=== PATIENT | male | born 1960 | race Caucasian/White ===

== ENCOUNTER 2020-11-26 12:11 | Inpatient (IN) | payer OTHER, SELFPAY ==
[2020-11-26] VITALS (58 sets, daily range): BP systolic 38–127; BP diastolic 18–81; PULSE 76–112; RESP 10–32; TEMP 36.3; O2SAT 63–100; BMI 20.6
--- NOTE | ~2020-11-26 | XR_ITS ---
EXAMINATION: XR chest 1V portable EXAM DATE: 11/29/2020 06:31 INDICATION: Acute respiratory failure, pneumonia. TECHNIQUE: Portable AP frontal chest x-ray was obtained. Comparison is made to prior examination from 11/28, 11/27. FINDINGS: Endotracheal tube tip is 1.2 centimeters above the tom. This could be safely retracted 1 cm. There is a right IJ venous line, tip projecting over the SVC. Nasogastric tube tip and side-port project over left upper quadrant, adequate. There is moderate to large amount of bilateral ill-defined acute airspace disease, probably edema or pneumonia. Please clinically correlate. There are no sizable pleural effusions. There is no pneumo thorax suspected. The cardiomediastinal silhouette is prominent but magnified on this AP technique. The bones and soft tissues are unremarkable. There is no significant interval change in airspace disease. IMPRESSION: 1. ET tube could be safely retracted 1 cm. 2. Moderate to large amount of bilateral edema and/or pneumonia. Reviewed, dictated and finalized at location A. HERMY EQUIPMENT REPAIRER
--- NOTE | ~2020-11-26 | XR_ITS ---
EXAMINATION: XR chest 1V portable EXAM DATE: 11/28/2020 06:27 INDICATION: Acute respiratory failure, pneumonia TECHNIQUE: Portable AP frontal chest x-ray was obtained. Comparison is made to prior examination from 11/27, 11/26. FINDINGS: Endotracheal tube tip is 2 centimeters above the tom. There is a right IJ venous line, tip projecting over the SVC. Nasogastric tube tip and side-port project over left upper quadrant, reginaldo quate. There is moderate to large amount of bilateral ill-defined acute airspace disease, probably edema or pneumonia. Please clinically correlate. There are no sizable pleural effusions. There is no pneumo thorax suspected. The cardiomediastinal silhouette is prominent but magnified on this AP technique. The bones and soft tissues are unremarkable. Mild interval progression in airspace disease correlating to last several days. IMPRESSION: 1. Tubes, line in position 2. Moderate to large amount of bilateral edema and/or pneumonia, mild interval progression. Reviewed, dictated and finalized at location A. K RANDER
--- NOTE | ~2020-11-26 | XR_ITS ---
EXAMINATION: XR chest ET placement EXAM DATE: 12/02/2020 09:10 INDICATION: Repositioned endotracheal tube. TECHNIQUE: Portable AP frontal chest x-ray was obtained. Comparison is made to prior examination from last several days. FINDINGS: Endotracheal tube tip is 2-3 centimeters above the tom. This is adequate. There is a ri ght IJ central venous line. There is a feeding tube tip and side-port projecting over left upper quad rant, expected positions. Moderate amount of ill-defined bilateral airspace disease, suspect with mild interval improvement com pared to last several days. Likely acute edema or pneumonia. Can't exclude underlying left suprahilar malignancy; follow-up should be obtained to resolution. There are small pleural effusions. There is no pneumothorax suspected. The cardiomediastinal silho uette is prominent but magnified on this AP technique. The bones and soft tissues are unremarkable. IMPRESSION: 1. Line and tube(s) in position. 2. Moderate amount of bilateral acute airspace disease, mild improvement. Reviewed, dictated and finalized at location B. CH AND PROSIZE MIXER
--- NOTE | ~2020-11-26 | XR_ITS ---
XR chest port-a-cath/central DATE: 11/26/2020 19:45 INDICATION: Central line placement TECHNIQUE: Portable upright AP view on 11/26/2020 at 1947 hours COMPARISON: 11/26/2020 AP chest at 1407 hours FINDINGS: Interval placement of right internal jugular central venous catheter, catheter tip overlyin g the lower aspect of the superior vena cava. No pneumothorax is detected. Bilateral pulmonary infiltrates are noted, stable since 1407 hours today. Aortic calcification. Diffuse osteopenia. IMPRESSION: Right internal jugular central venous catheter overlies caudal aspect of superior vena ca va; no pneumothorax Reviewed, dictated and finalized at Location A. Reviewed, dictated and finalized at location A. CTOR OF SCOUT WORK IMPRESSION: Right internal jugular central venous catheter overlies caudal aspe ct of superior vena cava; no pneumothorax
--- NOTE | ~2020-11-26 | XR_ITS ---
XR chest 1V portable DATE: 12/02/2020 05:39 INDICATION: Acute respiratory failure. Pneumonia. TECHNIQUE: Portable AP chest on December 02, 2020 at 0511 hours COMPARISON: 12/01/2020 portable AP chest at 0526 hours FINDINGS: ET tube tip 3 cm above tom in satisfactory position. NG tube in gastric fundus. Right internal jugular central venous catheter tip overlies the superior vena cava. Extensive diffuse bilateral pulmonary infiltrates persist relatively unchanged since 12/01/2020. Diffuse osteopenia. IMPRESSION: No significant change since 12/01/2020 Reviewed, dictated and finalized at location A. OL TEACHER
--- NOTE | ~2020-11-26 | CT_ITS ---
EXAMINATION: CT abdomen pelvis wo con DATE: 11/26/2020 15:41 INDICATION: Abnormal liver function tests. Abdominal pain. TECHNIQUE: Computed tomography (CT) of the abdomen and pelvis was performed without intravenous contr ast. Automated exposure control and iterative reconstruction technique were employed. The dose-length product was 472.98 mGy-cm. COMPARISON: CT abdomen and pelvis 08/23/2015, chest FINDINGS: The visualized portions of the lung bases demonstrate demonstrate emphysema. There are wide spread nodules and airspace and groundglass opacities. There are trace pleural effusions. The heart s ize is normal. No pericardial effusion. There is diffuse hepatic steatosis. There are gallstones in t he gallbladder, which is normal in size. There is gallbladder wall thickening, consistent with inters titial edema. The pancreas, adrenal glands, and kidneys are normal. There are no dilated loops of bow el. There are changes of ileocolic anastomosis. There is chronic wall thickening of 20 cm of terminal ileum. There is widespread edema of the intra-abdominal fat and body wall fat, which decreases sensi tivity. There are no pathologically enlarged lymph nodes. There is no free intraperitoneal fluid. The re are multiple chronic scattered small radiopaque foreign bodies in the peritoneum and retroperitone um. There is mild thoracolumbar spondylosis. There is chronic anterior wedging of T11 vertebral body. IMPRESSION: 1. Diffuse lung disease, consistent with pneumonia superimposed on emphysema. 2. Chronic wall thickening of 20 cm of terminal ileum, consistent with Crohn disease. 3. Diffuse hepatic steatosis. 4. Cholelithiasis. Reviewed, dictated and finalized at location A. CT MARKETING EXECUTIVE IMPRESSION: 1. Diffuse lung disease, consistent with pneumonia superimposed on emphysema. 2. Chronic wall thickening of 20 cm of terminal ileum, consistent with Crohn di sease. 3. Diffuse hepatic steatosis. 4. Cholelithiasis.
--- NOTE | ~2020-11-26 | XR_ITS ---
EXAMINATION: XR chest 1V portable DATE: 12/01/2020 06:16 INDICATION: Acute respiratory failure. Pneumonia. TECHNIQUE: frontal view of the chest was obtained. COMPARISON: Chest radiograph dated 11/30/2020 FINDINGS: Endotracheal tube tip 2.2 cm above the tom. Nasogastric tube tip in proximal side port in the body of the stomach. Right internal jugular central venous catheter with distal tip at the caudal superio r vena cava. Reticular and mild patchy airspace opacities throughout both lungs superimposed over a gradient of romero zy lower lung predominant opacities with blunting at the costophrenic angles. No pneumothorax. The ca rdiomediastinal silhouette is within normal limits for AP technique. Multiple old left-sided rib frac tures. IMPRESSION: 1. Persistent bilateral lung disease which could represent pulmonary edema and/or pneumonia. 2. Small bilateral pleural effusions. Reviewed, dictated and finalized at location A. M TABLE WORKER IMPRESSION: 1. Persistent bilateral lung disease which could represent pulmonary edema and/ or pneumonia. 2. Small bilateral pleural effusions.
--- NOTE | ~2020-11-26 | XR_ITS ---
EXAMINATION: XR chest 1V portable DATE: 11/30/2020 05:39 INDICATION: Acute respiratory failure. Pneumonia. TECHNIQUE: frontal view of the chest was obtained. COMPARISON: Chest radiograph dated 11/29/2020 FINDINGS: Endotracheal tube tip 4.5 cm above the tom. Nasogastric tube tip in proximal side port in the body of the stomach. Right internal jugular central venous catheter with distal tip at the midsuperior ve na cava. Persistent bilateral reticular and airspace opacities throughout the bilateral mid and lower lung zon es. Small bilateral pleural effusions. No pneumothorax. The cardiomediastinal silhouette is within no rmal limits for AP technique. Calcified mediastinal lymph nodes consistent with old granulomatous dis ease. Multiple old left-sided rib fractures. IMPRESSION: 1. Unchanged bilateral interstitial and airspace opacities which could represent pulmonary edema and/ or pneumonia. 2. Likely small bilateral pleural effusions. Reviewed, dictated and finalized at location A. HER PRESCHOOL IMPRESSION: 1. Unchanged bilateral interstitial and airspace opacities which could represen t pulmonary edema and/or pneumonia. 2. Likely small bilateral pleural effusions.
--- NOTE | ~2020-11-26 | US_ITS ---
EXAMINATION: US arterial ankle brachial ind DATE: 11/27/2020 12:18 INDICATION: Peripheral arterial disease. TECHNIQUE: Segmental pressures and plethysmographic and Doppler waveforms of the brachial and lower e xtremity arteries were obtained. COMPARISON: None. FINDINGS: Right and left brachial artery pressures of 78 mm Hg and 88 mm Hg, respectively, are concordant (norm al difference <= 30 mmHg). The right ankle-brachial index (LYNETTE) is 0.90 (normal >= 0.9-1.0). Arterial signal could not be detect ed in the great toe. Arterial Doppler waveforms are biphasic at the ankle. The left LYNETTE is 0.91. Arterial signal could not be detected in the great toe. Arterial Doppler wavefo tommie are biphasic. IMPRESSION: 1. Mildly decreased ABIs and lack of detectable arterial signal in the great toes, consistent with ar terial occlusive disease. Reviewed, dictated and finalized at location A. K PICKER IMPRESSION: 1. Mildly decreased ABIs and lack of detectable arterial signal in the great to es, consistent with arterial occlusive disease.
--- NOTE | ~2020-11-26 | XR_ITS ---
EXAMINATION: XR chest 1V DATE: 11/26/2020 14:11 INDICATION: Shortness of breath TECHNIQUE: frontal view of the chest was obtained. COMPARISON: Chest radiograph dated 02/24/[address] dated 02/25/2019 FINDINGS: Similar pattern of diffuse increased interstitial opacities throughout both lungs relatively sparing the apices. Diffuse bronchial wall thickening versus peribronchial cuffing. No pleural effusion or pn eumothorax. The cardiomediastinal silhouette is normal accounting for AP technique. Calcified right h ilar and mediastinal lymph nodes consistent with old granulomatous disease. A few old left-sided rib fractures. IMPRESSION: 1. Bronchial wall thickening and diffuse bilateral increased interstitial pattern. Differential would include pulmonary edema or pneumonia superimposed over emphysema which is better appreciated on prio r CT. Reviewed, dictated and finalized at location B. SPRING ASSEMBLER IMPRESSION: 1. Bronchial wall thickening and diffuse bilateral increased interstitial patte rn. Differential would include pulmonary edema or pneumonia superimposed over e mphysema which is better appreciated on prior CT.
--- NOTE | ~2020-11-26 | US_ITS ---
EXAMINATION: US venous doppler [facility] DATE: 11/27/2020 12:17 INDICATION: Lower limb pain. TECHNIQUE: Grayscale ultrasound images without and with compression and Doppler ultrasound images of the bilateral lower extremity veins were obtained. COMPARISON: None. FINDINGS: The visualized portions of right common femoral vein, profunda (deep) femoral vein, femoral vein, pop liteal vein, peroneal veins, posterior tibial veins, and greater saphenous vein outflow are patent. The visualized portions of left common femoral vein, profunda femoral vein, femoral vein, popliteal v ein, peroneal veins, posterior tibial veins, and greater saphenous vein outflow are patent. IMPRESSION: 1. No deep venous thrombosis. Reviewed, dictated and finalized at location A. TRANSFER OPERATOR
--- NOTE | ~2020-11-26 | CT_ITS ---
EXAMINATION: CT brain wo con DATE: 11/26/2020 14:05 INDICATION: Altered mental status TECHNIQUE: Computed tomography (CT) of the head was performed without intravenous contrast. Sagittal and coronal reconstructions were performed. The mA was adjusted according to patient size. Iterative reconstruction technique was employed. The dose-length product was 605.33 mGy-cm. COMPARISON: None FINDINGS: No acute intracranial hemorrhage, acute infarction or abnormal extra axial fluid collection. There is moderate scattered white matter hypoattenuation consistent with chronic small vessel ischemic diseas e. Ventricles are normal and symmetric. No mass/mass effect. The orbits, paranasal sinuses and mastoi d air cells are normal. IMPRESSION: 1. Moderate scattered white matter hypoattenuation consistent with chronic small vessel ischemic dise ase. No acute intracranial process. Reviewed, dictated and finalized at location B. MACHINE OPERATOR IMPRESSION: 1. Moderate scattered white matter hypoattenuation consistent with chronic smal l vessel ischemic disease. No acute intracranial process.
--- NOTE | ~2020-11-26 | US_ITS ---
EXAMINATION: US renal BI DATE: 11/27/2020 12:17 INDICATION: Acute kidney injury. TECHNIQUE: Multiple ultrasound grayscale images of the kidneys were obtained. COMPARISON: CT abdomen and pelvis 11/26/2020 FINDINGS: The right kidney measures 10.5 x 5.0 x 4.5 cm. The left kidney measures 10.3 x 5.4 x 5.6 cm. The kidn eys demonstrate normal parenchymal echogenicity. There is no hydronephrosis. The bladder is decompres sed by a Torres catheter. IMPRESSION: 1. Normal kidneys. No hydronephrosis. Reviewed, dictated and finalized at location A. CONTAINER SHIPPER
--- NOTE | ~2020-11-26 | XR_ITS ---
EXAMINATION: XR chest 1V portable EXAM DATE: 11/27/2020 05:55 INDICATION: Respiratory failure. TECHNIQUE: Portable AP frontal chest x-ray was obtained. Comparison is made to prior examination from 11/26/2020. FINDINGS: Endotracheal tube tip is 2 centimeters above the tom. There is a right IJ venous line, tip projecting over the SVC. Feeding tube tip is below the diaphragm. Site port is at the gastroesoph ageal junction level. This could be safely advanced 5 cm. There is moderate to large amount of bilateral ill-defined acute airspace disease, probably edema or pneumonia. Please clinically correlate. There are no sizable pleural effusions. There is no pneumo thorax suspected. The cardiomediastinal silhouette is prominent but magnified on this AP technique. The bones and soft tissues are unremarkable. There is no significant interval change compared to prior exam. IMPRESSION: 1. Nasogastric tube could be safely advanced 5 cm. 2. Moderate to large amount of bilateral edema and/or pneumonia. Reviewed, dictated and finalized at location A. PROJECT MANAGER
--- NOTE | ~2020-11-26 | XR_ITS ---
XR chest ET placement DATE: 11/26/2020 21:25 INDICATION: ET tube placement TECHNIQUE: Portable AP chest on 11/26/2020 at 2126 hours COMPARISON: 11/26/2020 portable AP chest at 1947 hours FINDINGS: Interval placement of endotracheal tube, the distal tip 3.3 cm above tom, in satisfactor y position. Right internal jugular central venous catheter tip overlying superior vena cava. Patchy bilateral pulmonary infiltrates are again noted, appearing increased in severity in particular in the left central and lower lung zones since 1947 hours. IMPRESSION: ET tube in satisfactory position Bilateral infiltrates, increased in particular on the left since earlier this evening Reviewed, dictated and finalized at Location A. Reviewed, dictated and finalized at location A. LE INSPECTOR IMPRESSION: ET tube in satisfactory position Bilateral infiltrates, increased in particular on the left since earlier this e dara
--- NOTE | ~2020-11-26 | CT_ITS ---
EXAMINATION: CT brain wo con EXAM DATE: 11/28/2020 06:20 INDICATION: Left eye deviation. TECHNIQUE: Spiral CT of the head was performed without contrast. Axial, coronal and sagittal images were reviewed. The dose-length product (DLP) for this examination was 756.67 mGy-cm. The exposure w as tailored according to patient size, and iterative reconstruction (ASIR) was used as additional dos e reduction technique. Comparison is made to prior examination from 11/26/2020. FINDINGS: Patient is intubated and there is an orogastric tube. There is suspected to be some interva l decrease in the density of subcortical and deep white matter, and possibly some loss of tucker-white differentiation in the occipital lobes. Sulci also appear less prominent than on prior study which co uld be from cerebral edema. Appearance suggests possibility of global anoxic injury. No herniation. There is no acute intraparenchymal hemorrhage. No evidence of intraparenchymal brain mass lesion. Th ere is moderate periventricular and subcortical hypodensity, nonspecific but probably partly microang iopathy and also developing edema. There is mild prominence of the sulci and ventricles related to cerebral atrophy. There is intracranial carotid arteriosclerosis. There are no extra-axial collect ions. There is no mass effect or midline shift. Disconjugate gaze. Soft tissue is unremarkable. T he visualized sinuses and mastoid air cells are well aerated. IMPRESSION: 1. Suspect developing symmetric changes of global anoxic injury. 2. Chronic age related findings. Reviewed, dictated and finalized at location A. OARD MOTOR TESTER
--- NOTE | ~2020-11-26 | XR_ITS ---
XR abdomen NG/feed tube insert DATE: 11/26/2020 22:37 INDICATION: NG tube placement TECHNIQUE: Portable AP view on 11/26/2020 at 2236 hours COMPARISON: None FINDINGS: A nasogastric tube is present in the gastric fundus, the proximal side-port approximately 5 cm distal to the diaphragmatic hiatus. IMPRESSION: NG tube in stomach Reviewed, dictated and finalized at Location A. Reviewed, dictated and finalized at location A. RLOCKER IMPRESSION: NG tube in stomach
--- NOTE | 2020-11-26 12:22 | ECG_ITS ---
Measurements Intervals [place] Rate: 77 P: 76 TX: 136 QRS: 258 QRSD: 114 T: 65 QT: 455 QTc: 515 Interpretive Statements SINUS RHYTHM ATRIAL PREMATURE COMPLEX RIGHT AXIS DEVIATION INCOMPLETE RIGHT BUNDLE BRANCH BLOCK POOR R WAVE PROGRESSION, ANTERIOR LEADS CONSIDER INFERIOR INFARCT, AGE INDETERMINATE ABNORMAL ECG Electronically Signed On 11-26-2020 12:49:04 STRUCTURAL STEEL EQUIPMENT ERECTOR by Camacho Palafox D.O.
[2020-11-26 12:27] LABS: Glucose Point of Care 67 (65-105)
[2020-11-26] MEDS: DEXTROSE 50% 25 GM/50 ML SYRINGE (12:28)
[2020-11-26] MEDS: DEXTROSE 5%/LACTATED RINGERS 1,000 ML 999 ML IV CONT (12:35)
--- NOTE | 2020-11-26 13:03 | ED.GENADULT ---
HPI - General Adult General Chief complaint: Recheck/Abnormal Lab/Rx Stated complaint: Altered Mental Status Time Seen by Provider: 11/26/20 12:25 Source: family Mode of arrival: EMS Limitations: altered mental status History of Present Illness HPI narrative: A 60-year-old male was brought into the emergency department with his brother and EMS for complaints of altered mental status. His brother noted that the patient started acting abnormally yesterday. They let him rest as it seemed that was what the patient wanted. They went into check on him today and now he was acting more altered and even now combative. Patient will respond if disturbed, he seems as though he just wants to sleep. Related Data Allergies Allergy/AdvReac Type Severity Reaction Status Date / Time Bumble Bee Allergy Severe Anaphylactic Uncoded 02/24/19 15:49 Shock HYDROMORPHONE HCL Allergy Unknown Uncoded 02/24/19 15:49 Review of Systems Review of Systems: ROS unobtainable: Yes unobtainable due to mental status Exam Narrative: Exam Narrative: GENERAL: Thin, frail, appears older than stated age. HEAD: Normocephalic, atraumatic. EYES: PERRLA and EOMI. ENT: Nares clear, no rhinorrhea or epistaxis. Mucous membranes moist. Oropharynx without tonsillar hypertrophy exudate or other lesions. Pt endentulous. NECK: Supple. No adenopathy or masses. No carotid bruits or JVD CHEST: Diminished, poor effort. No respiratory distress. No wheezes rales or rhonchi HEART: Regular rate and rhythm. No murmur heard. Normal peripheral pulses. ABDOMEN: Soft, nontender, nondistended, normal active bowel sounds. EXTREMITIES: Normal range of motion. No edema. SKIN: Warm, dry, no rash. NEURO: No focal deficits. Alert and oriented x3. PSYCH: Normal mood and affect. Course Reevaluation(s) Reevaluation #1: Patient is resting in the room, he is responding somewhat more but still somewhat altered. We will plan for admission. Time: 15:43 Consultations Consultation #1: Case discussed with ELEAZAR Jaquez for the hospitalist service. She has agreed to accept patient however recommends consulting with ICU. Awaiting CT of the abdomen and pelvis to further evaluate the patient's elevated LFTs. This is likely related to hypoperfusion from his shock. Time: 15:13 Consultation #2: Case discussed with envelope maker. Full details of the patient's presentation and evaluation were discussed. He agrees to accept patient for admission to the ICU. Time: 16:33 Vital Signs Vital signs: Vital Signs Temperature 36.3 C L 11/26/20 12:13 Pulse Rate 78 11/26/20 12:13 Respiratory Rate 31 H 11/26/20 12:13 Blood Pressure 87/37 L 11/26/20 12:13 Pulse Oximetry 85 L 11/26/20 12:13 Temperature 36.3 C L 11/26/20 12:13 Pulse Rate 76 11/26/20 15:50 Respiratory Rate 22 H 11/26/20 15:50 Blood Pressure 104/50 L 11/26/20 15:50 Pulse Oximetry 98 11/26/20 15:50 Medical Decision Making MDM Narrative Medical decision making narrative: In brief this 60-year-old male came into the emergency department for altered mental status. Initially he was found to be quite altered, he was maintaining his airway and his GCS was greater than 8. I did not feel he warranted intubation. Patient also presented hypotensive and would need to be adequately resuscitated before intubation. He was started on IV fluids and was responding well. His blood pressures were increasing. Patient's mental status has not improved however. He was found to be hyponatremic, hyperkalemic, with acute renal failure with a urinary tract infection and pneumonia. Patient qualified a septic shock once this was discovered. Blood cultures and antibiotics were ordered. Patient will be admitted to ICU. Medical Records Medical records reviewed: Yes I reviewed the patient's medical records. Vital Signs Vital Signs: Vital Signs Temperature 36.3 C L 11/26/20 12:13 Pulse Rate 78 11/26/20 12:13 Respiratory Rate 31 H 11/26/20 1
[2020-11-26 13:13] LABS: Glucose Point of Care 239 (65-105)
[2020-11-26] MEDS: LACTATED RINGERS 2,000 ML 999 ML IV CONT (13:20)
[2020-11-26 13:30] LABS: Basophils Percent Auto 0.2 % (0.2-1.2); Hematocrit 34.9 % (42.0-52.0); Hemoglobin 11.2 g/dL (14.0-18.0); Immature Granulocyte Absolute 0.21 K/mm3 (0.00-0.031); Lymphocytes Absolute Auto 1.25 K/mm3 (0.9-3.2); Lymphocytes Percent Auto 6.2 % (18.3-44.2); Mean Corpuscular HGB Conc 32.1 g/dl (32-36); Mean Corpuscular Hemoglobin 29.6 pg (26-34); Mean Corpuscular Volume 92.3 fl (80-100); Mean Platelet Volume 10.3 fl (7.4-10.4); Neutrophils Absolute Auto 17.8 K/mm3 (1.3-6.7); Neutrophils Percent Auto 87.6 % (45.5-73.1); Nucleated Red Blood Cells Absolute Auto 0.4 K/mm3 (0.0-0.012); Nucleated Red Blood Cells Perc 1.7 % (0.0-0.2); Platelet Count Result 411 k/mm3 (150-375); Red Blood Count 3.78 M/mm3 (4.6-6.20); Red Cell Distribution Width 20.8 % (11.5-14.5); White Blood Count 20.3 K/mm3 (4.5-10.0)
[2020-11-26 13:37] LABS: Base Excess ABG -9.5 mEq/l (+/-2.0); Fractional Inspired Oxygen 28 %; Oxygen Content ABG 12.4 %vol (16.0-22.0); PCO2 ABG 33.8 mmHg (35.0-45.0); PO2 ABG 56.8 mmHg (80.0-100.0); PO2 FiO2 Ratio Arterial Blood 2.03 %; pH ABG 7.294 (7.350-7.450)
[2020-11-26 13:41] LABS: Oxygen Saturation ABG 86.9 % (95.0-100.0)
[2020-11-26 13:42] LABS: Device NASAL CANNULA; Site Drawn RIGHT FEMORAL
[2020-11-26 13:42] LABS: Acetaminophen < 10 ug/mL (10-30); Ammonia 33 umol/L (9-30); Ethanol < 10 mg/dL (<10); Hypochromasia 1+ (NORMAL); Platelet Estimate Increased (Adequate); Salicylate 1.8 mg/dL (2-20)
[2020-11-26 13:43] LABS: Poikilocytosis 2+ (NORMAL); Target Cells 1+ (NORMAL)
--- NOTE | 2020-11-26 13:45 | PCRCNOTE ---
Dr Brooks brien femoral ABG'S
[2020-11-26 13:47] LABS: Alanine Aminotransferase 260 U/L (4-50); Albumin Level 2.7 g/dL (3.5-5.1); Alkaline Phosphatase 123 U/L (38-126); Anion Gap 14 mmol/L (8-16); Bilirubin,Total 2.6 mg/dL (0.2-1.3); Blood Urea Nitrogen 61 mg/dL (9-20); Calcium 5.9 mg/dL (8.4-10.2); Carbon Dioxide 19 mmol/L (22-30); Chloride 90 mmol/L (98-107); Glucose 216 mg/dL (75-110); Lactic Acid Reflex 5.9 mmol/L (0.7-2.1); Potassium 6.3 mmol/L (3.4-5.0); Sodium 123 mmol/L (137-145)
--- NOTE | 2020-11-26 13:47 | PCRCNOTE ---
Dr Feldman brien femoral ABG'S
[2020-11-26 13:52] LABS: Estimated CRCL calculation 26 ml/min; Estimated Glomerular Filt Rate 22
[2020-11-26 13:53] LABS: Aspartate Amino Transferase 1023 U/L (17-59)
[2020-11-26 14:00] LABS: Add Urine Microscopic? YES; Amorphous Sediment Urine Few; Appearance Urine Cloudy (Clear); Bacteria Urine 2+ /hpf; Bilirubin Urine Negative (Negative); Blood Urine 2+ (Negative); Color Urine Amber (Yellow); Glucose Urine UA Negative (Negative); Hyaline Casts Urine 20-29 /lpf; Ketones Urine Negative (Negative); Leukocyte Esterase Ur Negative LEU/UL (Negative); Mucus Urine Rare /lpf; Nitrate Urine Negative (Negative); Protein Urine 3+ mg/dL (Negative); Specific Grav Ur 1.016 (1.001-1.035); Squamous Epithelial Cell Urine Few /hpf (Few); Urobilinogen Urine Negative mg/dL (<2.0); WBC Urine 16-20 /hpf
[2020-11-26 14:02] LABS: Creatine Kinase 491 U/L (55-170)
[2020-11-26 14:09] LABS: Barbiturate Screen Urine Negative (Negative); Benzodiazepines Screen Urine Negative (Negative)
[2020-11-26 14:10] LABS: Cannabinoid Screen Urine Negative (Negative); Cocaine Screen Urine Negative (Negative); Methadone Screen Urine Negative (Negative); Opiate Screen Urine Negative (Negative); Phencyclidine Screen Urine Negative (Negative)
[2020-11-26 14:20] LABS: Troponin I 0.371 ng/mL (0.000-0.034)
[2020-11-26 14:52] LABS: Amphetamine Screen Urine Positive (Negative)
[2020-11-26 15:33] LABS: CRP 6.8 mg/dL (<1.0)
[2020-11-26 15:53] LABS: Glucose Point of Care 176 (65-105)
[2020-11-26 16:22] LABS: Reflex Lactic Acid Yes or No Add Lactic
[2020-11-26 17:25] LABS: Lactic Acid 3.1 mmol/L (0.7-2.1)
[2020-11-26 18:22] LABS: Anion Gap 12 mmol/L (8-16); Blood Urea Nitrogen 60 mg/dL (9-20); Calcium 5.7 mg/dL (8.4-10.2); Carbon Dioxide 21 mmol/L (22-30); Chloride 89 mmol/L (98-107); Glucose 274 mg/dL (75-110); Potassium 5.9 mmol/L (3.4-5.0); Sodium 122 mmol/L (137-145)
[2020-11-26 18:30] LABS: Estimated CRCL calculation 28 ml/min; Estimated Glomerular Filt Rate 24
[2020-11-26 18:53] LABS: Glucose Point of Care 170 (65-105)
--- NOTE | 2020-11-26 18:54 | PC.NURSE ---
EDP at bedside due to patient's decrease in mental status and blood pressure. Central Line placement consent obtained at this time.
[2020-11-26] MEDS: LACTATED RINGERS 1,000 ML 999 ML (18:55)
--- NOTE | 2020-11-26 19:00 | PC.NURSE ---
Levophed started per EDP verbal order at 4mcg/min due to patient's mental status change and low blood pressures.
--- NOTE | 2020-11-26 19:08 | PC.NURSE ---
YAZAN Gan Rn initiated. Levophed drip at 4 mcg/min. ERP at bedside.
--- NOTE | 2020-11-26 19:10 | PC.NURSE ---
Assumed care of Pt. Report from KELVIN Gan
--- NOTE | 2020-11-26 19:12 | PC.NURSE ---
Central line placed by ANNALISA Robles.
[2020-11-26] MEDS: NOREPINEPHRINE 8 MG/D5W 250 ML 8 MG/250 ML BAG 9.38 MG IV CONT (19:30)
--- NOTE | 2020-11-26 20:00 | PM.IMHP ---
H&P: HPI History of Present Illness Date/Time: 11/26/20 20:00. The patient was seen and evaluated in the emergency department. Chief Complaint: Altered mental status. Narrative: This is a 60-year-old male smoker with COPD, previously on oxygen, and Crohn's disease who presented to the emergency department earlier today via EMS from home for evaluation of altered mental status. Due to his confusion, the patient is not able to provide an accurate history and as such a majority of the following is obtained via a review of his electronic medical records as well as discussions with his brother, Issa, who is at bedside. The patient lives with his elderly mother who reports that over the past month or so he has only left his room to go to the bathroom and back. Within the last day or so the patient phoned Issa asking if he had a wheelchair at home for him to use, as he was having a lot of pain in his legs and feet with walking. For the last couple of days he has not been eating much, and this morning when his mom came to wake him up he was confused, irritable, and combative prompting the call to 911. At the time my evaluation he will open his eyes to name (he is very hard of hearing) but his answers are mumbled and incomprehensible. In the emergency department he was found to be in septic shock, presumably due to pneumonia, with evidence of multiorgan failure and is being admitted in this setting. Due to impending respiratory failure and increasing confusion, the patient was intubated. Review of Systems Review of Systems: Narrative: Unable to obtain given his current clinical condition as detailed above. [facility] Past Medical History Medical History (Updated 11/26/20 @ 22:35 by Marivel Pittman PA-C) Chronic back pain Chronic obstructive pulmonary disease Chronic respiratory failure Previously on home oxygen. Colon polyps Crohn's disease Gastroesophageal reflux disease Hard of hearing Osteoarthritis Pulmonary nodules Tobacco dependence Surgical History Surgical History (Updated 11/26/20 @ 22:26 by Marivel Pittman PA-C) History of partial colectomy History of tonsillectomy Family History Family History (Updated 11/26/20 @ 22:27 by Marivel Pittman PA-C) Father Heart disease Mother Diabetes mellitus Sibling Diabetes mellitus Sibling Congestive heart failure Social History Social History (Updated 01/26/21 @ 22:28 by Marivel Pittman PA-C) Social History: The patient lives in [place] with his mother. He never and has no children. On disability. Smokes about 1.5 packs of cigarettes per day and has for over 40 years. No known alcohol or drug use however his drug screen today is positive for amphetamines. His mother Janet Black is his surrogate decision maker and at this time he is a full code. His brother Issa is also in emergency contact ([phone]). Meds Home Medications and Allergies Allergies Allergy/AdvReac Type Severity Reaction Status Date / Time bee venom protein (honey bee) Allergy Severe Anaphylactic Verified 11/26/20 19:34 Shock hydromorphone Allergy Unknown Verified 11/26/20 19:34 Bumble Bee Allergy Severe Anaphylactic Uncoded 02/24/19 15:49 Shock Vital Signs Vital Signs - 24 hr 11/26/20 12:13 11/26/20 12:54 11/26/20 13:48 Temperature 97.3 F L Pulse Rate 78 86 78 Respiratory Rate 31 H 21 H 20 Blood Pressure 87/37 L 86/36 L 92/31 L Pulse Oximetry 85 L 92 95 11/26/20 15:14 11/26/20 15:50 11/26/20 17:07 Temperature Pulse Rate 81 76 81 Respiratory Rate 26 H 22 H 27 H Blood Pressure 100/46 L 104/50 L 109/48 L Pulse Oximetry 96 98 95 11/26/20 18:54 11/26/20 19:00 11/26/20 19:01 Temperature Pulse Rate 81 82 83 Respiratory Rate 17 32 H 25 H Blood Pressure 65/52 L 38/18 L Pulse Oximetry 89 L 11/26/20 19:08 11/26/20 19:15 11/26/20 19:30 Temperature Pulse Rate 83 85 86 Respiratory Rate 28 H 31 H Blood Pressure 75/52 L 64/24 L
[2020-11-26 20:19] LABS: Alveolar/Arterial O2 Gradient 157.5 mmHg; Base Excess ABG -15.1 mEq/l (+/-2.0); Fractional Inspired Oxygen 40 %; HCO3 ABG 13.4 mEq/l (22.0-26.0); Oxygen Content ABG 14.7 %vol (16.0-22.0); Oxygen Saturation ABG 91.7 % (95.0-100.0); Oxyhemoglobin 87.3 % THb (90.0-100.0); PCO2 ABG 41.6 mmHg (35.0-45.0); PO2 ABG 79.9 mmHg (80.0-100.0); Total Hemoglobin 11.9 g/dL (12.0-18.0)
[2020-11-26 20:21] LABS: Device NASAL CANNULA; Modified Allen's Test Pass; Site Drawn RIGHT RADIAL; pH ABG 7.126 (7.350-7.450)
[2020-11-26 20:24] LABS: Partial Thromboplastin Time 45.6 SECONDS (22.3-36.8); Prothrombin Time 46.5 Seconds (11.1-14.7)
[2020-11-26 20:31] LABS: Alanine Aminotransferase 392 U/L (4-50); Albumin Level 2.7 g/dL (3.5-5.1); Alkaline Phosphatase 127 U/L (38-126); Anion Gap 17 mmol/L (8-16); Blood Urea Nitrogen 58 mg/dL (9-20); Calcium 5.8 mg/dL (8.4-10.2); Carbon Dioxide 16 mmol/L (22-30); Chloride 91 mmol/L (98-107); Glucose 136 mg/dL (75-110); Magnesium 1.7 mg/dL (1.6-2.3); Potassium 6.2 mmol/L (3.4-5.0); Sodium 124 mmol/L (137-145)
[2020-11-26 20:32] LABS: Lactic Acid Reflex 8.1 mmol/L (0.7-2.1)
--- NOTE | 2020-11-26 20:45 | PC.NURSE ---
VORB Marivel BUSH 2048 15 mg etomidate administered IVP 2049 25 mg Rocuronium administered IVP PT. intubated by ELEAZAR Orta. ET tube size 7.5 and measures 24 at the lip. Positive color change noted. Bilateral breath sounds heard by ELEAZAR Orta
[2020-11-26 20:50] LABS: Estimated CRCL calculation 24 ml/min; Estimated Glomerular Filt Rate 21
--- NOTE | 2020-11-26 20:50 | WPDPROCEDUR ---
Procedures Intubation Intubation Date: 11/26/20 Intubation Time: 20:50 Consent: Obtained from patients A pre-procedural Time-Out was completed immediately before starting the procedure and confirmed: Patient Identification, Site, Procedure, Patient Position and the Availability of Requisite Equipment: Yes Sedative: etomidate Mg given: 15 Paralytic: rocuronium Mg given: 25 Laryngoscope: John (3) ET tube size: cuffed Tube secured depth (cm): 24 Tube secured location: lips Tube placement confirmation: visualized tube passing through cords, equal breath sounds bilaterally, no breath sounds over epigastrium and confirmation by capnometry Patient tolerated procedure: well Intubation complications: none
[2020-11-26 20:55] LABS: Aspartate Amino Transferase 1597 U/L (17-59)
--- NOTE | 2020-11-26 21:00 | PC.NURSE ---
2 RN's attempted to insert NG and OG multiple times. No success.
[2020-11-26 21:02] LABS: Creatine Kinase 1228 U/L (55-170)
[2020-11-26 21:03] LABS: Hemoglobin A1C 4.9 % (<5.7)
[2020-11-26 21:05] LABS: Fibrinogen 156 mg/dl (215-510)
[2020-11-26] MEDS: SODIUM CHLORIDE 0.9% IV 1,000 ML 999 ML IV CONT ×2 (21:20→23:45)
[2020-11-26 21:23] LABS: Glucose Point of Care 118 (65-105)
[2020-11-26] MEDS: DEXTROSE 50% 25 GM/50 ML SYRINGE IV PUSH (21:27)
[2020-11-26] MEDS: INSULIN HUMAN REGULAR (*BKC) 100 UNITS/ML 10 UNITS IV PUSH (21:28)
--- NOTE | 2020-11-26 21:30 | PC.NURSE ---
2 amps of Sodium Bicarb administered IVP YAZAN Perez, PA
[2020-11-26] MEDS: CALCIUM GLUC 1,000 MG/NS 50 ML 1,000 MG/50 ML BAG 100 MG IVPB (21:32)
[2020-11-26] MEDS: MIDAZOLAM HCL (*CRX) 2 MG/2 ML VIAL IV PUSH (21:35)
[2020-11-26 22:12] LABS: Hematocrit 35.3 % (42.0-52.0); Hemoglobin 11.1 g/dL (14.0-18.0); Mean Corpuscular HGB Conc 31.4 g/dl (32-36); Mean Corpuscular Hemoglobin 29.8 pg (26-34); Mean Corpuscular Volume 94.9 fl (80-100); Mean Platelet Volume 9.8 fl (7.4-10.4); Platelet Count Result 413 k/mm3 (150-375); Red Blood Count 3.72 M/mm3 (4.6-6.20); Red Cell Distribution Width 20.8 % (11.5-14.5); White Blood Count 24.7 K/mm3 (4.5-10.0)
[2020-11-26] MEDS: LACTATED RINGERS 1,000 ML 125 ML IV CONT (22:27)
[2020-11-26] MEDS: FENTANYL 2,500MCG/NS250ML(*CRX 2,500 MCG/250 ML BAG 10 MCG IV CONT (22:35)
[2020-11-26 23:04] LABS: Alveolar/Arterial O2 Gradient 291.1 mmHg; Base Excess ABG -11.4 mEq/l (+/-2.0); Fractional Inspired Oxygen 65 %; HCO3 ABG 18.7 mEq/l (22.0-26.0); Methemoglobin ABG 0.2 %THb (0-1.5); Oxygen Content ABG 16.2 %vol (16.0-22.0); Oxygen Saturation ABG 95.5 % (95.0-100.0); Oxyhemoglobin 92.8 % THb (90.0-100.0); PO2 ABG 104.8 mmHg (80.0-100.0); PO2 FiO2 Ratio Arterial Blood 1.61 %; Total Hemoglobin 12.3 g/dL (12.0-18.0)
[2020-11-26 23:07] LABS: Device VENTILATOR; Modified Allen's Test Pass; PCO2 ABG 62.1 mmHg (35.0-45.0); Site Drawn LEFT RADIAL; pH ABG 7.097 (7.350-7.450)
[2020-11-26 23:08] LABS: Arterial Blood Gas PEEP 5 cmH2O; Arterial Blood Gas Tidal Volume 380 ml; Arterial Blood Gas Vent Mode CMV; Arterial Blood Gas Ventilator rate 16 /MIN
[2020-11-26 23:35] LABS: Mean Platelet Volume 9.7 fl (7.4-10.4); Platelet Count Result 422 k/mm3 (150-375)
[2020-11-26 23:38] LABS: INR 4.7; Prothrombin Time 44.7 Seconds (11.1-14.7)
[2020-11-26 23:39] LABS: Partial Thromboplastin Time 45.3 SECONDS (22.3-36.8)
[2020-11-26 23:42] LABS: Lactic Acid Reflex 3.5 mmol/L (0.7-2.1)
[2020-11-26] MEDS: SODIUM BICARBONATE 8.4% 100 MEQ in DEXTROSE 5% 1,000 ML 1,000 ML IV CONT (23:43)
[2020-11-26 23:44] LABS: Fibrinogen 243 mg/dl (215-510)
[2020-11-26] MEDS: VASOPRESSIN INJ 100 UNITS in DEXTROSE 5% 95 ML IV CONT (23:46)
--- NOTE | 2020-11-26 23:49 | PC.NURSE ---
This patient, Guanaco Black Jr., was admitted to Intensive Care Unit-5 at 2200. Patient/family oriented to hospital policies and general routines including ID bracelet, bed and alarms, visiting hours, pain management, procedures, bathroom and other care routines, personal items, smoking policy, room service/diet, and visiting hours. Information on how to activate the Rapid Response Team has been discussed. Patient/Family are encouraged to report perceived risks to care and to ask questions if they do not understand what they are told or what they should do.
[2020-11-26 23:56] LABS: Anion Gap 12 mmol/L (8-16); Blood Urea Nitrogen 64 mg/dL (9-20); Calcium 5.9 mg/dL (8.4-10.2); Carbon Dioxide 22 mmol/L (22-30); Chloride 94 mmol/L (98-107); Creatine Kinase 2349 U/L (55-170); D Dimer 14.23 ug/mL (<0.48); Estimated CRCL calculation 25 ml/min; Estimated Glomerular Filt Rate 21; Glucose 157 mg/dL (75-110); Magnesium 1.6 mg/dL (1.6-2.3); Potassium 5.6 mmol/L (3.4-5.0); Sodium 128 mmol/L (137-145)
[2020-11-27] VITALS (33 sets, daily range): BP systolic 86–120; BP diastolic 39–64; PULSE 87–110; RESP 16–28; TEMP 34.4–37.6; O2SAT 92–99
[2020-11-27 02:13] LABS: Glucose Point of Care 172 (65-105)
[2020-11-27] MEDS: NOREPINEPHRINE 8 MG/D5W 250 ML 8 MG/250 ML BAG 28.13 MG IV CONT (03:54)
[2020-11-27 04:23] LABS: Hepatitis B Surface Antigen Negative (Negative)
[2020-11-27 04:29] LABS: HAV RESULT Negative (Negative); Hepatitis B Core IgM Result Negative (Negative)
[2020-11-27 04:39] LABS: Glucose Point of Care 181 (65-105)
[2020-11-27 04:40] LABS: Alveolar/Arterial O2 Gradient 274.7 mmHg; Base Excess ABG -6.7 mEq/l (+/-2.0); Carboxyhemoglobin 0.8 % THb (0-2.0); Fractional Inspired Oxygen 60 %; HCO3 ABG 20.3 mEq/l (22.0-26.0); Methemoglobin ABG 0.3 %THb (0-1.5); Oxygen Content ABG 15.8 %vol (16.0-22.0); Oxygen Saturation ABG 96.7 % (95.0-100.0); Oxyhemoglobin 95.3 % THb (90.0-100.0); PCO2 ABG 46.8 mmHg (35.0-45.0); PO2 ABG 101.6 mmHg (80.0-100.0); PO2 FiO2 Ratio Arterial Blood 1.69 %; Reduced Hemoglobin 3.6 %THb (0-5.0); Total Hemoglobin 11.7 g/dL (12.0-18.0)
[2020-11-27 04:41] LABS: Hepatitis C Virus Antibody Negative (Negative)
[2020-11-27 04:41] LABS: pH ABG 7.256 (7.350-7.450)
[2020-11-27 04:42] LABS: Arterial Blood Gas PEEP 5 cmH2O; Arterial Blood Gas Vent Mode CMV; Arterial Blood Gas Ventilator rate 24 /MIN; Device VENTILATOR; Modified Allen's Test Pass; Site Drawn LEFT RADIAL
[2020-11-27 04:43] LABS: Arterial Blood Gas Tidal Volume 450 ml
[2020-11-27 06:05] LABS: Basophils Percent Auto 0.2 % (0.2-1.2); Hemoglobin 11.1 g/dL (14.0-18.0); Immature Granulocyte Percent A 0.8 % (0-0.5); Lymphocytes Absolute Auto 1.36 K/mm3 (0.9-3.2); Lymphocytes Percent Auto 5.5 % (18.3-44.2); Mean Corpuscular HGB Conc 31.7 g/dl (32-36); Mean Corpuscular Hemoglobin 29.1 pg (26-34); Mean Corpuscular Volume 91.6 fl (80-100); Mean Platelet Volume 9.4 fl (7.4-10.4); Neutrophils Absolute Auto 22.3 K/mm3 (1.3-6.7); Neutrophils Percent Auto 89.5 % (45.5-73.1); Nucleated Red Blood Cells Absolute Auto 0.6 K/mm3 (0.0-0.012); Nucleated Red Blood Cells Perc 2.2 % (0.0-0.2); Platelet Count Result 378 k/mm3 (150-375); Red Blood Count 3.82 M/mm3 (4.6-6.20); Red Cell Distribution Width 20.4 % (11.5-14.5); White Blood Count 24.9 K/mm3 (4.5-10.0)
[2020-11-27 06:10] LABS: INR 4.4; Partial Thromboplastin Time 43.4 SECONDS (22.3-36.8); Prothrombin Time 42.6 Seconds (11.1-14.7)
[2020-11-27 06:11] LABS: Lactic Acid Reflex 2.5 mmol/L (0.7-2.1)
[2020-11-27 06:27] LABS: Glucose Point of Care 172 (65-105)
[2020-11-27 07:59] LABS: Alanine Aminotransferase 549 U/L (4-50); Albumin Level 2.6 g/dL (3.5-5.1); Alkaline Phosphatase 140 U/L (38-126); Bilirubin Direct 0.8 mg/dL (0-0.3); Bilirubin,Total 2.1 mg/dL (0.2-1.3); CRP 6.9 mg/dL (<1.0); Creatine Kinase 4483 U/L (55-170); Magnesium 1.5 mg/dL (1.6-2.3)
[2020-11-27 08:02] LABS: Aspartate Amino Transferase 1890 U/L (17-59)
[2020-11-27 08:52] LABS: Phosphorus 7.3 mg/dL (2.5-4.5)
[2020-11-27 08:57] LABS: Reflex Lactic Acid Yes or No Add Lactic
[2020-11-27 09:12] LABS: Lactic Acid Reflex 2.1 mmol/L (0.7-2.1)
--- NOTE | 2020-11-27 09:25 | WPDCNINT ---
Assessment and Plan Assessment and plan (1) Acute respiratory failure: Code(s): J96.00 - Acute respiratory failure, unspecified whether with hypoxia or hypercapnia Status: Acute Assessment and Plan: Acute respiratory failure likely related to pneumonia, metabolic acidosis, septic shock -currently intubated, on CMV mode of ventilation, peep of 5 and 60% FiO2, ABGs and chest x-ray reviewed, wean FiO2 to maintain O2 sats greater than 92% -patient has a history of COPD, will add bronchodilators -continue cefepime vancomycin -sedated with low-dose fentanyl and Versed infusion, maintain. RASS of 0 to -2 (2) Septic shock: Code(s): A41.9 - Sepsis, unspecified organism; R65.21 - Severe sepsis with septic shock Status: Acute Assessment and Plan: Patient presented with altered mental status, decreased p.o. intake, hypotension, dehydration, acute kidney injury, elevated liver enzymes, lactic acidosis -septic shock likely related to pneumonia -continue antibiotics as above -urine and blood cultures have been obtained and pending -patient was adequately fluid-resuscitated with approximately 5 L IV fluid -on bicarb infusion -lactic acid trending down -continue vasopressin and Levophed, maintain mean arterial pressures > 70 mmHg -will monitor renal function, liver enzymes and lactic acid (3) Peripheral vascular disease: Code(s): I73.9 - Peripheral vascular disease, unspecified Status: Acute Assessment and Plan: Patient with bilateral lower extremity peripheral vascular disease with discoloration and cyanosis along with cold feet bilaterally -will continue to maintain MAP > 70 mmHg -will obtain lower extremity arterial Doppler -will start patient on heparin infusion (4) Acute renal failure (ARF): Qualifiers: Acute renal failure type: with acute tubular necrosis Qualified Code(s): N17.0 - Acute kidney failure with tubular necrosis Code(s): N17.9 - Acute kidney failure, unspecified Status: Acute Assessment and Plan: Acute renal failure likely multifactorial secondary to septic shock, infection, rhabdomyolysis, dehydration, decreased p.o. intake -patient has been adequately fluid-resuscitated, urine output is low -lactic acid trending down -continue bicarb infusion -continue to monitor renal function, electrolytes and urine output -nephrology has been consulted -renal ultrasound and urine electrolytes along with urine eosinophis has been ordered (5) Rhabdomyolysis: Code(s): M62.82 - Rhabdomyolysis Status: Acute Assessment and Plan: Elevated CK related to rhabdomyolysis causing renal dysfunction -patient has been adequately fluid-resuscitated -continue IV fluids (6) Pneumonia: Code(s): J18.9 - Pneumonia, unspecified organism Status: Acute Assessment and Plan: Chest x-ray shows pneumonia, continue antibiotics as above -bronchodilators -currently intubated on mechanical ventilation (7) Suspected 2019 novel coronavirus infection: Code(s): Z20.822 - Contact with and (suspected) exposure to COVID-19 Status: Acute Assessment and Plan: SARS-CoV-2 PCR pending -continue droplet, airborne and contact isolation/precautions (8) Elevated LFTs: Code(s): R79.89 - Other specified abnormal findings of blood chemistry Status: Acute Assessment and Plan: Elevated liver enzymes likely related to shock, secondary to hypotension, septic shock -continue to maintain pressures greater than 70 mmHg -monitor LFTs (9) Elevated troponin: Code(s): R77.8 - Other specified abnormalities of plasma proteins Status: Acute Assessment and Plan: Elevated troponin likely related to demand ischemia -will continue to monitor Additional Plan Discussed with patient's mother, Janet, updated her with patient's condition and plan of care. She is aware that patient has multiple organ dysfunction and failure, which
[2020-11-27 09:50] LABS: Alanine Aminotransferase 633 U/L (4-50); Albumin Level 2.5 g/dL (3.5-5.1); Alkaline Phosphatase 141 U/L (38-126); Anion Gap 7 mmol/L (8-16); Bilirubin,Total 2.2 mg/dL (0.2-1.3); Blood Urea Nitrogen 65 mg/dL (9-20); Calcium 5.5 mg/dL (8.4-10.2); Carbon Dioxide 27 mmol/L (22-30); Chloride 91 mmol/L (98-107); Estimated CRCL calculation 25 ml/min; Estimated Glomerular Filt Rate 23; Glucose 159 mg/dL (75-110); Lactate Dehydrogenase 9432 U/L (313-618); Potassium 5.3 mmol/L (3.4-5.0); Sodium 125 mmol/L (137-145)
[2020-11-27 09:51] LABS: Ferritin > 2000.00 ng/mL (11.1-264)
[2020-11-27 09:56] LABS: NT Pro B Type Natriuretic Pept 11700 PG/ML (5-100); Troponin I 0.874 ng/mL (0.000-0.034)
[2020-11-27 10:26] LABS: Creatine Kinase 4435 U/L (55-170)
[2020-11-27 10:27] LABS: Aspartate Amino Transferase 1987 U/L (17-59)
[2020-11-27] MEDS: SODIUM BICARBONATE 8.4% 100 MEQ in DEXTROSE 5% 1,000 ML 1,000 ML IV CONT ×2 (11:13→17:10)
[2020-11-27] MEDS: HEPARIN SOD/D5W 100 UNITS/ML 25,000 UNITS/250 ML BAG 13 UNITS IV CONT (11:13)
--- NOTE | 2020-11-27 11:47 | PM.CNGS ---
Assessment and Plan Assessment and plan (1) Septic shock: Code(s): A41.9 - Sepsis, unspecified organism; R65.21 - Severe sepsis with septic shock Status: Acute Assessment and Plan: The patient presented to the hospital in septic shock with hypotension and evidence of multi-organ failure. Lactic acid initially 5.9 and did rise further, despite fluid resuscitation and medical treatment. Serial lactic acid levels have been monitored and now the patient seems to be responding well to current treatment. His lactic acid and WBC count is trending down. Abdominal CT showed no acute intraabdominal abnormalities. His exam reveals a non-distended abdomen with no rigidity. I discussed the case with Dr. Ruiz and Dr. Saunders. He appears to most likely be septic from a pulmonary source. We would recommend continuing broad-spectrum IV antibiotics, IV fluids, and monitoring serial lactate levels. We will continue to monitor the patient with serial abdominal exams and labs. His most recent lactic acid is now down to 2.1. If there is any change in the patient's clinical course, then we may have to reconsider the source of his sepsis. No plans for surgical intervention at this time. Thank you for allowing us to see the patient in consultation and we will continue to follow along with you. (2) Pneumonia: Code(s): J18.9 - Pneumonia, unspecified organism Status: Acute Assessment and Plan: Continue broad-spectrum IV antibiotics and medical management. Currently intubated in ICU. COVID test pending. Management per Hospitalist/Intensivisit. (3) Suspected 2019 novel coronavirus infection: Code(s): Z20.822 - Contact with and (suspected) exposure to COVID-19 Status: Acute Assessment and Plan: COVID test pending. Continue isolation precautions. (4) Peripheral vascular disease: Code(s): I73.9 - Peripheral vascular disease, unspecified Status: Acute Assessment and Plan: Bilateral lower extremities cold and cyanotic, no palpable pulses. Vascular studies have been ordered. Currently on a heparin drip for the PVD. Management per Hospitalist/Head Sawyer. (5) Acute respiratory failure: Code(s): J96.00 - Acute respiratory failure, unspecified whether with hypoxia or hypercapnia Status: Acute Assessment and Plan: Now intubated in the ICU. Wean vent as tolerated. Management per Head Sawyer. (6) Acute renal failure (ARF): Qualifiers: Acute renal failure type: with acute tubular necrosis Qualified Code(s): N17.0 - Acute kidney failure with tubular necrosis Code(s): N17.9 - Acute kidney failure, unspecified Status: Acute Assessment and Plan: Likely multifactorial from septic shock, dehydration, hypotension, rhabdomyolysis. Has received IV fluid resuscitation and now on continuous IV fluids. Continue to trend labs. Nephrology has been consulted. (7) Rhabdomyolysis: Code(s): M62.82 - Rhabdomyolysis Status: Acute (8) Liver failure: Code(s): K72.90 - Hepatic failure, unspecified without coma Status: Acute Assessment and Plan: Elevated LFTs on admission. Hepatitis panel negative. Likely secondary to hypotension/septic shock. Continue to trend labs. (9) Elevated troponin: Code(s): R77.8 - Other specified abnormalities of plasma proteins Status: Acute Assessment and Plan: [place] to be related to demand ischemia. Management per Head Sawyer/Hospitalist. (10) Acute hyperkalemia: Code(s): E87.5 - Hyperkalemia Status: Acute Assessment and Plan: Hyperkalemia with acute renal failure. Received hyperkalemia treatment overnight. Recent K+ 5.3. Trend labs. Management per Head Sawyer/Hospitalist. (11) Chronic obstructive pulmonary disease: Code(s): J44.9 - Chronic obstructive pulmonary disease, unspecified Status: Acute (12) Crohn's disease: Code(s): K50.90 - Crohn's disease, unspeci
--- NOTE | 2020-11-27 12:11 | PM.CNNEP ---
Assessment and Plan Assessment and plan (1) ANDREY (acute kidney injury): Code(s): N17.9 - Acute kidney failure, unspecified Status: Acute Assessment and Plan: likely due to ATN from: - hemodynamic instability/hypotension - sepsis (pneumonia + lower extremities) - mild rhabdomyolysis - pre-renal factors follow-up on renal ultrasound follow-up on urine electrolytes and trend CPK follow repeat labs and UOP with current interventions (2) Septic shock: Code(s): A41.9 - Sepsis, unspecified organism; R65.21 - Severe sepsis with septic shock Status: Acute Assessment and Plan: consistent with admission parameters -- altered mental status, poor p.o. intake, hypotension, acute kidney injury, and lactic acidosis presumably related to pneumonia but lower extremities could be a source follow culture data continue antibiotics vasopressor support to maintain MAP continue supportive therapy (3) Acute respiratory failure: Code(s): J96.00 - Acute respiratory failure, unspecified whether with hypoxia or hypercapnia Status: Acute Assessment and Plan: due to a combination of pneumonia, sepsis, and pulmonary edema continue ventilator support at this time wean when more stable (4) Pneumonia: Code(s): J18.9 - Pneumonia, unspecified organism Status: Acute Assessment and Plan: follow cultures follow imaging on antibiotics (5) UTI (urinary tract infection): Code(s): N39.0 - Urinary tract infection, site not specified Status: Acute Assessment and Plan: UA suggestive follow culture results on antibiotics (6) Rhabdomyolysis: Code(s): M62.82 - Rhabdomyolysis Status: Acute Assessment and Plan: CPK trending up IVFs as tolerated follow for now (7) Peripheral vascular disease: Code(s): I73.9 - Peripheral vascular disease, unspecified Status: Acute Assessment and Plan: seems quite severe by exam likely worsened by the need for vasopressor therapy (8) Elevated LFTs: Code(s): R79.89 - Other specified abnormal findings of blood chemistry Status: Acute Assessment and Plan: consistent with shock liver follow trend of LFTs Will continue to follow. History of Present Illness Reason for Consult Consult date: 11/27/20 Reason for consult: acute renal failure Chief Complaint Chief complaint: Septic shock, ANDREY History of Present Illness Narrative: All of the information I have obtained is from review of the electronic medical record as well as discussion with the physicians and nurses involved in his care as the patient is unable to provide me any history as he is currently intubated. The patient is a 60 year old male with a past medical history as outlined below who presented to [facility] Emergency room via EMS for further evaluation of his altered mental status. Apparently, the 24 hours prior to his presentation to the emergency room, the patient has been having increasing pain and discomfort in his lower extremities with any type of movement or activity. It is presumed that he has been bedbound and was only able to get up to use the restroom and then go back to bed. He apparently was asking some of his other family members if they had a wheelchair he could use given the severity of the pain and discomfort his lower extremities. Associated with this has been the fact that he has had been not eating and drinking very well. On the morning of admission, his mother noted him to be somewhat more confused, irritable and combative which prompted the call to EMS for further evaluation. He was subsequent transferred to the ER by EMS because of this change in mental state. Work-up and evaluation in the ER found the patient to be hypotensive and quite altered with regard to his mental status. He was give
--- NOTE | 2020-11-27 12:11 | P.CONNP_ITS ---
Assessment and Plan Assessment and plan (1) ANDREY (acute kidney injury): Code(s): N17.9 - Acute kidney failure, unspecified Status: Acute Assessment and Plan: * likely due to ATN from: - hemodynamic instability/hypotension - sepsis (pneumonia + lower extremities) - mild rhabdomyolysis - pre-renal factors * follow-up on renal ultrasound * follow-up on urine electrolytes and trend CPK * follow repeat labs and UOP with current interventions (2) Septic shock: Code(s): A41.9 - Sepsis, unspecified organism; R65.21 - Severe sepsis with septic shock Status: Acute Assessment and Plan: * consistent with admission parameters -- altered mental status, poor p.o. intake, hypotension, acute kidney injury, and lactic acidosis * presumably related to pneumonia but lower extremities could be a source * follow culture data * continue antibiotics * vasopressor support to maintain MAP * continue supportive therapy (3) Acute respiratory failure: Code(s): J96.00 - Acute respiratory failure, unspecified whether with hypoxia or hypercapnia Status: Acute Assessment and Plan: * due to a combination of pneumonia, sepsis, and pulmonary edema * continue ventilator support at this time * wean when more stable (4) Pneumonia: Code(s): J18.9 - Pneumonia, unspecified organism Status: Acute Assessment and Plan: * follow cultures * follow imaging * on antibiotics (5) UTI (urinary tract infection): Code(s): N39.0 - Urinary tract infection, site not specified Status: Acute Assessment and Plan: * UA suggestive * follow culture results * on antibiotics (6) Rhabdomyolysis: Code(s): M62.82 - Rhabdomyolysis Status: Acute Assessment and Plan: * CPK trending up * IVFs as tolerated * follow for now (7) Peripheral vascular disease: Code(s): I73.9 - Peripheral vascular disease, unspecified Status: Acute Assessment and Plan: * seems quite severe by exam * likely worsened by the need for vasopressor therapy (8) Elevated LFTs: Code(s): R79.89 - Other specified abnormal findings of blood chemistry Status: Acute Assessment and Plan: * consistent with shock liver * follow trend of LFTs Will continue to follow. History of Present Illness Reason for Consult Consult date: 11/27/20 Reason for consult: acute renal failure Chief Complaint Chief complaint: Septic shock, ANDREY History of Present Illness Narrative: All of the information I have obtained is from review of the electronic medical record as well as discussion with the physicians and nurses involved in his care as the patient is unable to provide me any history as he is currently intubated. The patient is a 60 year old male with a past medical history as outlined below who presented to [facility] Emergency room via EMS for further evaluation of his altered mental status. Apparently, the 24 hours prior to his presentation to the emergency room, the patient has been having increasing pain and discomfort in his lower extremities with any type of movement or activity. It is presumed that he has been bedbound and was only able to get up to use the restroom and then go back to bed. He apparently was asking some of his other family members if they had a wheelchair he could use given the severity of the pain and discomfort his lower extre mities. Associated with this has been t
[2020-11-27 12:17] LABS: Glucose Point of Care 150 (65-105)
[2020-11-27 12:17] LABS: Basophils Percent Auto 0.1 % (0.2-1.2); Eosinophils Percent Auto 0.1 % (0-4.4); Hematocrit 34.6 % (42.0-52.0); Hemoglobin 11.3 g/dL (14.0-18.0); Immature Granulocyte Absolute 0.13 K/mm3 (0.00-0.031); Immature Granulocyte Percent A 0.7 % (0-0.5); Lymphocytes Absolute Auto 1.29 K/mm3 (0.9-3.2); Lymphocytes Percent Auto 6.5 % (18.3-44.2); Mean Corpuscular HGB Conc 32.7 g/dl (32-36); Mean Corpuscular Hemoglobin 29.3 pg (26-34); Mean Corpuscular Volume 89.6 fl (80-100); Mean Platelet Volume 9.7 fl (7.4-10.4); Monocytes Absolute Auto 0.9 K/mm3 (0.1-0.6); Monocytes Percent Auto 4.5 % (2.6-8.5); Neutrophils Absolute Auto 17.5 K/mm3 (1.3-6.7); Neutrophils Percent Auto 88.1 % (45.5-73.1); Nucleated Red Blood Cells Absolute Auto 0.5 K/mm3 (0.0-0.012); Nucleated Red Blood Cells Perc 2.5 % (0.0-0.2); Platelet Count Result 341 k/mm3 (150-375); Red Blood Count 3.86 M/mm3 (4.6-6.20); Red Cell Distribution Width 20.1 % (11.5-14.5); White Blood Count 19.8 K/mm3 (4.5-10.0)
[2020-11-27 12:27] LABS: INR 4.5; Prothrombin Time 43.1 Seconds (11.1-14.7)
[2020-11-27 12:29] LABS: Partial Thromboplastin Time 73.2 SECONDS (22.3-36.8)
[2020-11-27 12:31] LABS: Lactic Acid 1.7 mmol/L (0.7-2.1)
[2020-11-27 12:47] LABS: Sodium Urine Random 34 meq/L
[2020-11-27 13:04] LABS: Lactate Dehydrogenase > 10000 U/L (313-618)
[2020-11-27] MEDS: NOREPINEPHRINE 8 MG/D5W 250 ML 8 MG/250 ML BAG 33.75 MG IV CONT ×2 (13:36→20:58)
[2020-11-27 14:05] LABS: SARS-CoV-2 RNA PCR Negative
[2020-11-27] MEDS: IPRATROPIUM BR 0.02% INH SOLN 0.5 MG/2.5 ML VIAL INHALATION ×2 (14:09→20:01)
[2020-11-27] MEDS: ALBUTEROL SULFATE NEB 2.5 MG/0.5 ML INH INHALATION ×2 (14:10→20:01)
[2020-11-27 14:16] LABS: Ferritin > 2000.00 ng/mL (11.1-264)
[2020-11-27] MEDS: PANTOPRAZOLE SODIUM IV 40 MG VIAL IV PUSH (14:47)
--- NOTE | 2020-11-27 16:37 | WPDGICN ---
Assessment and Plan Assessment and plan (1) Septic shock: Code(s): A41.9 - Sepsis, unspecified organism; R65.21 - Severe sepsis with septic shock Status: Acute Assessment and Plan: probably pulmonary source, intubated and broad spectrum antibiotics on isolation, need to rule out covid (inflammatory markers high) (2) Shock liver: Code(s): K72.00 - Acute and subacute hepatic failure without coma Status: Acute Assessment and Plan: history consistent with shock liver, he is still hypotensive with 2 pressors hepatitis panel negative (3) Elevated LFTs: Code(s): R79.89 - Other specified abnormal findings of blood chemistry Status: Acute (4) Crohn's disease: Code(s): K50.90 - Crohn's disease, unspecified, without complications Status: Acute Assessment and Plan: no records in system and unknown if indeed he has crohn's surgery also on board (5) Pneumonia: Code(s): J18.9 - Pneumonia, unspecified organism Status: Acute (6) Suspected 2019 novel coronavirus infection: Code(s): Z20.822 - Contact with and (suspected) exposure to COVID-19 Status: Acute (7) Disseminated intravascular coagulation: Code(s): D65 - Disseminated intravascular coagulation [defibrination syndrome] Status: Acute Assessment and Plan: also noted elevated inr, septic shock he is critically ill (8) Rhabdomyolysis: Code(s): M62.82 - Rhabdomyolysis Status: Acute Assessment and Plan: monitor (9) Elevated troponin: Code(s): R77.8 - Other specified abnormalities of plasma proteins Status: Acute (10) Acute metabolic encephalopathy: Code(s): G93.41 - Metabolic encephalopathy Status: Acute (11) Severe dehydration: Code(s): E86.0 - Dehydration Status: Acute (12) Peripheral vascular disease: Code(s): I73.9 - Peripheral vascular disease, unspecified Status: Acute Assessment and Plan: started on heparin gtt by primary team, concerned for vasculopathy legs GI Consult Note Consult date/time: 11/27/20 16:37 Reason for consult: elevated liver enzymes, shock liver HPI: Guanaco Black Jr. is a 60 year old male with COPD, Crohn's disease, osteoarthritis, and tobacco dependence, who was brought to the emergency department yesterday via EMS due to altered mental status. History obtained from records as he is intubated. Apparently, the patient lives at home with his elderly mother and has become nearly bedbound over the past month, noted decrease appetite and yesterday became confused with altered mental status. Brother also reported that patient was complaining of more pain in both legs. He was found to have septic shock with high lactic acid level, also elevated liver enzymes with shock liver, CXR showed pneumonia and was intubated. Also had mild elevation of troponin and CK, now he is in ICU with 2 pressors. Broad spectrum antibiotics started, covid-[address] scan showed diffuse lung disease, consistent with pneumonia superimposed on emphysema. Chronic wall thickening of 20 cm of terminal ileum, consistent with Crohn disease. Diffuse hepatic steatosis. Cholelithiasis. Review of Systems Review of Systems: ROS unobtainable: Yes unobtainable due to endotracheal tube and unobtainable due to mental status PMFSH Past Medical History Medical History (Updated 11/27/20 @ 16:43 by Manoj Tobias MD) Chronic back pain Chronic obstructive pulmonary disease Chronic respiratory failure Previously on home oxygen. Colon polyps Crohn's disease Gastroesophageal reflux disease Hard of hearing Osteoarthritis Pulmonary nodules Shock liver Tobacco dependence UTI (urinary tract infection) Surgical History Surgical History History of partial colectomy History of tonsillectomy Family History Family History (Reviewed 11/27/20 @ 1
[2020-11-27 18:30] LABS: Glucose Point of Care 117 (65-105)
[2020-11-27 19:11] LABS: Partial Thromboplastin Time 129.3 SECONDS (22.3-36.8)
[2020-11-27 21:50] LABS: Glucose Point of Care 124 (65-105)
--- NOTE | 2020-11-27 22:43 | ECHO_ITS ---
Patient Info Name: Guanaco Black Age: 60 years : 1960 Gender: Male Ht: 72 in Wt: 165 lbs BSA: 1.95 m2 HR: 105 bpm BP: 96 / 69 mmHg Heart Rhythm: Tachycardia, Sinus Rhythm Technical Quality: Good Exam Date: 11/27/2020 3:09 PM Exam Location: [facility] Patient Status: Inpatient Admit Date: 11/26/2020 Staff Ordering Physician: Marivel Pittman PA-C Master Cosmetologist: Guanaco Benjamin RDCS Attending Provider: Darryl Welch MD Referring Physician: Zain COLLINS; Exam Type: CA echo doppler color flow Study Info Indications R65.21 - Severe sepsis with septic shock Complete two-dimensional, color flow and Doppler transthoracic echocardiogram is performed. History/Risk Factors Sepsis; elevated trops, SOB. Summary 1. Complete two-dimensional, color flow and Doppler transthoracic echocardiogram is performed. 2. Left ventricular chamber dimension is mildly enlarged. 3. Left ventricular systolic function is severely reduced, estimated at <15%. 4. There is no increased left ventricular wall thickness. 5. The left ventricular diastolic function is grade II diastolic dysfunction. 6. Right ventricular chamber dimension is moderately enlarged. 7. Right ventricular systolic function is reduced. 8. There is mild mitral valve regurgitation. 9. The mitral valve has thickened leaflets. 10. There is mild to moderate tricuspid valve regurgitation. 11. Severe pulmonary hypertension, estimated pulmonary arterial systolic pressure is 62 mmHg. 12. There is mild pulmonic regurgitation. 13. The aortic root size at the sinus of Valsalva is mildly dilated. Left Ventricle Left ventricular chamber dimension is mildly enlarged. Left ventricular systolic function is severely reduced, estimated at <15%. There is no increased left ventricular wall thickness. The left ventricular diastolic function is grade II diastolic dysfunction. Right Ventricle Right ventricular chamber dimension is moderately enlarged. Right ventricular systolic function is reduced. Left Atria Left atrial chamber dimension is normal. Right Atria Right atrial chamber dimension is mildly enlarged. Atrial Septum Intact interatrial septum visualized by color flow imaging. Aortic Valve The aortic valve is trileaflet. There is mild aortic valve sclerosis. There is no aortic valve stenosis. There is trace aortic valve regurgitation. Pulmonic Valve The pulmonic valve is normal. There is no pulmonic valve stenosis. There is mild pulmonic regurgitation. Mitral Valve The mitral valve has thickened leaflets. There is no mitral valve stenosis. There is mild mitral valve regurgitation. Tricuspid Valve The tricuspid valve leaflets are normal. There is no significant tricuspid valve stenosis. There is mild to moderate tricuspid valve regurgitation. Severe pulmonary hypertension, estimated pulmonary arterial systolic pressure is 62 mmHg. Pericardium/Pleural The pericardium appears normal. There is no pericardial effusion. Inferior Vena Cava Dilated inferior vena cava with <50% collapse upon inspiration consistent with elevated right atrial pressure, 20 mmHg. Aorta The aortic root size at the sinus of Valsalva is mildly dilated. Left Ventricular Outflow Tract Name Value Normal
[2020-11-28] VITALS (38 sets, daily range): BP systolic 85–120; BP diastolic 41–74; PULSE 100–115; RESP 24; TEMP 36.9–37.7; O2SAT 89–98; BMI 22.0
[2020-11-28 00:31] LABS: Glucose Point of Care 123 (65-105)
[2020-11-28 01:29] LABS: Glucose Point of Care 157 (65-105)
[2020-11-28 01:46] LABS: Partial Thromboplastin Time 105.5 SECONDS (22.3-36.8)
[2020-11-28] MEDS: ALBUTEROL SULFATE NEB 2.5 MG/0.5 ML INH INHALATION ×4 (01:47→21:46)
[2020-11-28] MEDS: IPRATROPIUM BR 0.02% INH SOLN 0.5 MG/2.5 ML VIAL INHALATION ×4 (01:47→21:46)
[2020-11-28] MEDS: NOREPINEPHRINE 8 MG/D5W 250 ML 8 MG/250 ML BAG 37.5 MG IV CONT (02:40)
[2020-11-28] MEDS: SODIUM BICARBONATE 8.4% 100 MEQ in DEXTROSE 5% 1,000 ML 1,000 ML IV CONT (03:49)
[2020-11-28 04:23] LABS: Basophils Percent Auto 0.1 % (0.2-1.2); Eosinophils Percent Auto 0.1 % (0-4.4); Hematocrit 33.9 % (42.0-52.0); Hemoglobin 11.3 g/dL (14.0-18.0); Immature Granulocyte Absolute 0.14 K/mm3 (0.00-0.031); Immature Granulocyte Percent A 0.9 % (0-0.5); Lymphocytes Absolute Auto 1.26 K/mm3 (0.9-3.2); Lymphocytes Percent Auto 7.8 % (18.3-44.2); Mean Corpuscular HGB Conc 33.3 g/dl (32-36); Mean Corpuscular Hemoglobin 29.4 pg (26-34); Mean Corpuscular Volume 88.1 fl (80-100); Mean Platelet Volume 10.7 fl (7.4-10.4); Monocytes Absolute Auto 0.8 K/mm3 (0.1-0.6); Monocytes Percent Auto 5.1 % (2.6-8.5); Neutrophils Absolute Auto 13.8 K/mm3 (1.3-6.7); Nucleated Red Blood Cells Absolute Auto 0.1 K/mm3 (0.0-0.012); Nucleated Red Blood Cells Perc 0.9 % (0.0-0.2); Platelet Count Result 277 k/mm3 (150-375); Red Blood Count 3.85 M/mm3 (4.6-6.20); Red Cell Distribution Width 19.5 % (11.5-14.5); White Blood Count 16.1 K/mm3 (4.5-10.0)
[2020-11-28 04:37] LABS: Lactic Acid Reflex 1.4 mmol/L (0.7-2.1)
[2020-11-28 05:00] LABS: Alveolar/Arterial O2 Gradient 299.6 mmHg; Base Excess ABG 1.2 mEq/l (+/-2.0); Carboxyhemoglobin 0.8 % THb (0-2.0); Device VENTILATOR; Fractional Inspired Oxygen 60 %; HCO3 ABG 26.9 mEq/l (22.0-26.0); Methemoglobin ABG 0.1 %THb (0-1.5); Modified Allen's Test Pass; Oxygen Content ABG 16.3 %vol (16.0-22.0); Oxygen Saturation ABG 94.8 % (95.0-100.0); Oxyhemoglobin 92.3 % THb (90.0-100.0); PCO2 ABG 47.3 mmHg (35.0-45.0); PO2 ABG 76.2 mmHg (80.0-100.0); PO2 FiO2 Ratio Arterial Blood 1.27 %; Reduced Hemoglobin 6.8 %THb (0-5.0); Site Drawn RIGHT RADIAL; Total Hemoglobin 12.5 g/dL (12.0-18.0); pH ABG 7.373 (7.350-7.450)
[2020-11-28 05:01] LABS: Albumin Level 2.2 g/dL (3.5-5.1); Alkaline Phosphatase 196 U/L (38-126); Anion Gap 4 mmol/L (8-16); Bilirubin,Total 3.6 mg/dL (0.2-1.3); Blood Urea Nitrogen 63 mg/dL (9-20); Calcium 6.1 mg/dL (8.4-10.2); Carbon Dioxide 32 mmol/L (22-30); Chloride 87 mmol/L (98-107); Estimated CRCL calculation 31 ml/min; Estimated Glomerular Filt Rate 29; Glucose 114 mg/dL (75-110); Magnesium 1.3 mg/dL (1.6-2.3); Phosphorus 4.7 mg/dL (2.5-4.5); Sodium 123 mmol/L (137-145)
[2020-11-28 05:01] LABS: Arterial Blood Gas PEEP 5 cmH2O; Arterial Blood Gas Tidal Volume 450 ml; Arterial Blood Gas Vent Mode CMV; Arterial Blood Gas Ventilator rate 24 /MIN
[2020-11-28 05:02] LABS: Alanine Aminotransferase 1037 U/L (4-50)
[2020-11-28 05:35] LABS: Aspartate Amino Transferase 2426 U/L (17-59)
[2020-11-28 06:44] LABS: Glucose Point of Care 73 (65-105)
[2020-11-28] MEDS: HEPARIN SOD/D5W 100 UNITS/ML 25,000 UNITS/250 ML BAG 12 UNITS IV CONT (06:46)
[2020-11-28 07:53] LABS: Glucose Point of Care 75 (65-105)
[2020-11-28 08:04] LABS: Partial Thromboplastin Time 96.6 SECONDS (22.3-36.8)
[2020-11-28] MEDS: NOREPINEPHRINE 8 MG/D5W 250 ML 8 MG/250 ML BAG 48.75 MG IV CONT ×3 (08:59→19:37)
[2020-11-28] MEDS: PANTOPRAZOLE SODIUM IV 40 MG VIAL IV PUSH (09:03)
[2020-11-28] MEDS: HYDROCORTISONE SODIUM SUCCINATE 100 MG/2 ML VIAL IV PUSH ×2 (09:03→16:50)
[2020-11-28] MEDS: DEXTROSE 5%/0.9% SOD CHL 1,000 ML 50 ML IV CONT (09:03)
[2020-11-28] MEDS: MAGNESIUM SULF 2 GM/WATER 50ML 2 GM/50 ML BAG IVPB (09:07)
[2020-11-28 09:53] LABS: Creatine Kinase 1566 U/L (55-170)
--- NOTE | 2020-11-28 11:18 | PCDIET ---
MD order to start tube feedings today. Recommend Vital 1.2 formula with goal rate of 65mL/hr for 1716kcal and 107g protein over 22 hours/day.
--- NOTE | 2020-11-28 11:43 | WPDINTPN ---
Progress Note: A&P Assessment and Plan (1) Acute respiratory failure: Code(s): J96.00 - Acute respiratory failure, unspecified whether with hypoxia or hypercapnia Status: Acute Assessment and Plan: Acute respiratory failure likely related to pneumonia, metabolic acidosis, septic shock, pulmonary edema -currently intubated, on CMV mode of ventilation, peep of 5 and 60% FiO2, ABGs and chest x-ray reviewed, wean FiO2 to maintain O2 sats greater than 92% -increase PEEP to 8 -patient has a history of COPD, continue bronchodilators -continue cefepime vancomycin -sedated with low-dose fentanyl and Versed infusion. Sedation held at this time for sedation vacation (2) Septic shock: Code(s): A41.9 - Sepsis, unspecified organism; R65.21 - Severe sepsis with septic shock Status: Acute Assessment and Plan: Patient presented with altered mental status, decreased p.o. intake, hypotension, dehydration, acute kidney injury, elevated liver enzymes, lactic acidosis -septic shock likely related to pneumonia -continue antibiotics as above -urine and blood cultures have been obtained and pending -patient was adequately fluid-resuscitated with approximately 5 L IV fluid -DC bicarb infusion -lactic acid has normalized -continue vasopressin and Levophed, maintain mean arterial pressures > 70 mmHg -add hydrocortisone -at 25% albumin -decrease fluids (3) Peripheral vascular disease: Code(s): I73.9 - Peripheral vascular disease, unspecified Status: Acute Assessment and Plan: Patient with bilateral lower extremity peripheral vascular disease with discoloration and cyanosis along with cold feet bilaterally -will continue to maintain MAP > 70 mmHg -venous Dopplers negative for DVT -both extremities are cold and mild below the knees likely secondary to diffuse PAD and vasopressors (4) Acute renal failure (ARF): Qualifiers: Acute renal failure type: with acute tubular necrosis Qualified Code(s): N17.0 - Acute kidney failure with tubular necrosis Code(s): N17.9 - Acute kidney failure, unspecified Status: Acute Assessment and Plan: Acute renal failure likely multifactorial secondary to septic shock, infection, rhabdomyolysis, dehydration, decreased p.o. intake -patient has been adequately fluid-resuscitated, urine output is low -lactic acid has normalized - Discontinue bicarb infusion -continue to monitor renal function, electrolytes and urine output -nephrology has been consulted -renal ultrasound was unremarkable - and urine electrolytes along with urine eosinophis has been ordered (5) Rhabdomyolysis: Code(s): M62.82 - Rhabdomyolysis Status: Acute Assessment and Plan: Elevated CK related to rhabdomyolysis causing renal dysfunction -CK level improving -patient has been adequately fluid-resuscitated -continue IV fluids but decrease as patient is now volume overloaded (6) Pneumonia: Code(s): J18.9 - Pneumonia, unspecified organism Status: Acute Assessment and Plan: Chest x-ray shows pneumonia, continue antibiotics as above -bronchodilators -currently intubated on mechanical ventilation (7) Suspected 2019 novel coronavirus infection: Code(s): Z20.822 - Contact with and (suspected) exposure to COVID-19 Status: Acute Assessment and Plan: SARS-CoV-2 PCR negative Off of droplet, airborne and contact isolation/precautions (8) Elevated LFTs: Code(s): R79.89 - Other specified abnormal findings of blood chemistry Status: Acute Assessment and Plan: Elevated liver enzymes likely related to shock, secondary to hypotension, septic shock -continue to maintain pressures greater than 70 mmHg -monitor LFTs (9) Elevated troponin: Code(s): R77.8 - Other specified abnormalities of plasma proteins Status: Acute Assessment and Plan: Elevated troponin likely related to demand ischemia -will continue t
[2020-11-28] MEDS: ALBUMIN HUMAN 25% 25 GM/100 ML 100 ML IVPB ×2 (12:11→16:50)
[2020-11-28 12:18] LABS: Glucose Point of Care 127 (65-105)
[2020-11-28 13:44] LABS: Partial Thromboplastin Time 107.8 SECONDS (22.3-36.8)
--- NOTE | 2020-11-28 14:39 | PM.PNNEP ---
Progress Note: A&P Assessment and Plan (1) ANDREY (acute kidney injury): Code(s): N17.9 - Acute kidney failure, unspecified Status: Acute Assessment and Plan: likely due to ATN from: - hemodynamic instability/hypotension - sepsis (pneumonia + lower extremities) - mild rhabdomyolysis - pre-renal factors renal ultrasound ultrasound normal urine electrolytes with pre-renal azotemia follow repeat labs and UOP with current interventions (2) Septic shock: Code(s): A41.9 - Sepsis, unspecified organism; R65.21 - Severe sepsis with septic shock Status: Acute Assessment and Plan: consistent with admission parameters -- altered mental status, poor p.o. intake, hypotension, acute kidney injury, and lactic acidosis presumably related to pneumonia but lower extremities could be a source follow culture data continue antibiotics vasopressor support to maintain MAP continue supportive therapy (3) Acute respiratory failure: Code(s): J96.00 - Acute respiratory failure, unspecified whether with hypoxia or hypercapnia Status: Acute Assessment and Plan: due to a combination of pneumonia, sepsis, and pulmonary edema continue ventilator support at this time wean when more stable (4) Pneumonia: Code(s): J18.9 - Pneumonia, unspecified organism Status: Acute Assessment and Plan: follow cultures follow imaging on antibiotics (5) Rhabdomyolysis: Code(s): M62.82 - Rhabdomyolysis Status: Acute Assessment and Plan: CPK trending down IVFs as tolerated follow for now (6) Peripheral vascular disease: Code(s): I73.9 - Peripheral vascular disease, unspecified Status: Acute Assessment and Plan: seems quite severe by exam likely worsened by the need for vasopressor therapy (7) Elevated LFTs: Code(s): R79.89 - Other specified abnormal findings of blood chemistry Status: Acute Assessment and Plan: consistent with shock liver follow trend of LFTs Will continue to follow. Subjective Date/time seen: 11/28/20 14:39 Remains on ventilator support and vasopressors at the time of my visit; no real significant change at this time althogh appears to be making better urine output at this time. Exam Narrative: Exam Narrative: General: ill appearing male intubated Heart: normal S1 and S2; no rub Lungs: clear to auscultation Abdomen: soft, nontender, nondistended, positive bowel sounds Extremities: no cyanosis or clubbing; trace edema Skin: discolored and cyanotic (lower extremities) Objective Data Vital Signs Vital Signs: Vital Signs Temp Pulse Resp BP Pulse Ox 11/28/20 14:21 105 H 24 H 11/28/20 14:07 105 H 113/55 L 11/28/20 14:00 105 H 24 H 104/47 L 98 11/28/20 12:00 37.2 C 108 H 24 H 105/41 L 96 11/28/20 11:25 110 H 95 11/28/20 10:00 112 H 24 H 103/48 L 94 11/28/20 08:59 115 H 102/68 11/28/20 08:38 115 H 105/55 L 11/28/20 08:36 115 H 95 11/28/20 08:35 104 H 24 H 11/28/20 08:00 37.3 C 113 H 24 H 100/74 94 11/28/20 07:47 112 H 24 H 11/28/20 07:46 112 H 24 H 11/28/20 06:00 37.5 C 112 H 24 H 108/54 L 93 11/28/20 05:11 113 H 93 11/28/20 04:00 37.7 C H 112 H 24 H 85/51 L 89 L 11/28/20 02:00 110 H 24 H 95/61 L 97 11/28/20 01:55 111 H 24 H 11/28/20 01:50 112 H 93 11/28/20 01:47 112 H 24 H 11/28/20 00:00 37.7 C H 113 H 24 H 94/69 L 92 11/27/20 23:00 87/45 L 11/27/20 22:28 110 H 93 11/27/20 22:00 37.6 C 110 H 24 H 101/55 L 93 11/27/20 20:11 108 H 24 H 11/27/20 20:05 108 H 93 11/27/20 20:04 107 H 24 H 11/27/20 20:00 37.4 C 106 H 24 H 101/51 L 94 11/27/20 18:00 37.2 C 107 H 28 H 98/55 L 92 11/27/20 17:42 106 H 94 Intake/Output Intake/Output: Inta
--- NOTE | 2020-11-28 14:39 | P.PNNP_ITS ---
Progress Note: A&P Assessment and Plan (1) ANDREY (acute kidney injury): Code(s): N17.9 - Acute kidney failure, unspecified Status: Acute Assessment and Plan: * likely due to ATN from: - hemodynamic instability/hypotension - sepsis (pneumonia + lower extremities) - mild rhabdomyolysis - pre-renal factors * renal ultrasound ultrasound normal * urine electrolytes with pre-renal azotemia * follow repeat labs and UOP with current interventions (2) Septic shock: Code(s): A41.9 - Sepsis, unspecified organism; R65.21 - Severe sepsis with septic shock Status: Acute Assessment and Plan: * consistent with admission parameters -- altered mental status, poor p.o. intake, hypotension, acute kidney injury, and lactic acidosis * presumably related to pneumonia but lower extremities could be a source * follow culture data * continue antibiotics * vasopressor support to maintain MAP * continue supportive therapy (3) Acute respiratory failure: Code(s): J96.00 - Acute respiratory failure, unspecified whether with hypoxia or hypercapnia Status: Acute Assessment and Plan: * due to a combination of pneumonia, sepsis, and pulmonary edema * continue ventilator support at this time * wean when more stable (4) Pneumonia: Code(s): J18.9 - Pneumonia, unspecified organism Status: Acute Assessment and Plan: * follow cultures * follow imaging * on antibiotics (5) Rhabdomyolysis: Code(s): M62.82 - Rhabdomyolysis Status: Acute Assessment and Plan: * CPK trending down * IVFs as tolerated * follow for now (6) Peripheral vascular disease: Code(s): I73.9 - Peripheral vascular disease, unspecified Status: Acute Assessment and Plan: * seems quite severe by exam * likely worsened by the need for vasopressor therapy (7) Elevated LFTs: Code(s): R79.89 - Other specified abnormal findings of blood chemistry Status: Acute Assessment and Plan: * consistent with shock liver * follow trend of LFTs Will continue to follow. Subjective Date/time seen: 11/28/20 14:39 Remains on ventilator support and vasopressors at the time of my visit; no real significant change at this time althogh appears to be making better urine output at this time. Exam Narrative: Exam Narrative: General: ill appearing male intubated Heart: normal S1 and S2; no rub Lungs: clear to auscultation Abdomen: soft, nontender, nondistended, positive bowel sounds Extremities: no cyanosis or clubbing; trace edema Skin: discolored and cyanotic (lower extremities) Objective Data Vital Signs Vital Signs: Vital Signs Temp Pulse Resp BP Pulse Ox 11/28/20 14:21 105 H 24 H 11/28/20 14:07 105 H 113/55 L 11/28/20 14:00 105 H 24 H 104/47 L 98 11/28/20 12:00 37.2 C 108 H 24 H 105/41 L 96 11/28/20 11:25 110 H 95 11/28/20 10:00 112 H 24 H 103/48 L 94 11/28/20 08:59 115 H 102/68 11/28/20 08:38 115 H 105/55 L 11/28/20 08:36 115 H 95 11/28/20 08:35 104 H 24 H 11/28/20 08:00 37.3 C 113 H 24 H 100/74 94 11/28/20 07:47 112 H 24 H 11/28/20 07:46 112 H 24 H 11/28/20 06:00 37.5 C 112 H 24 H 108/54 L 93 11/28/20 05:11
--- NOTE | 2020-11-28 15:10 | PM.PNGS ---
Progress Note: A&P Assessment and Plan (1) Septic shock: Code(s): A41.9 - Sepsis, unspecified organism; R65.21 - Severe sepsis with septic shock Status: Acute Assessment and Plan: Our consult was for the patient's initial lactic acidosis with septic shock/hypotension. Lactic acid now 1.4 today. WBC trending down. Continue broad-spectrum IV antibiotics. Blood cx NGTD. Echo showed left ventricular systolic function < 15%. Vasopressor requirements have increased since yesterday. His sepsis does not appear to be from an intra-abdominal source. Most likely a pulmonary source. No surgical indication at this point. We will sign off the case. Please let us know if there are any surgical concerns in the future. (2) Pneumonia: Code(s): J18.9 - Pneumonia, unspecified organism Status: Acute Assessment and Plan: Continue broad-spectrum IV antibiotics and management per primary team. Currently intubated in ICU. COVID test negative. (3) Peripheral vascular disease: Code(s): I73.9 - Peripheral vascular disease, unspecified Status: Acute Assessment and Plan: ABIs are mildly decreased ABIs and lack of detectable arterial signal in the great toes, consistent with arterial occlusive disease. Venous dopplers negative for DVT. Likely, a combination of his PAD and amount of vasopressor support is what is causing his peripheral cyanosis. Since no sign of emboli, there is no need for anticoagulation (heparin drip) from our standpoint. (4) Acute respiratory failure: Code(s): J96.00 - Acute respiratory failure, unspecified whether with hypoxia or hypercapnia Status: Acute Assessment and Plan: Now intubated in the ICU. Wean vent as tolerated. Management per [employer] Worker. (5) Acute renal failure (ARF): Qualifiers: Acute renal failure type: with acute tubular necrosis Qualified Code(s): N17.0 - Acute kidney failure with tubular necrosis Code(s): N17.9 - Acute kidney failure, unspecified Status: Acute Assessment and Plan: Likely multifactorial from septic shock, dehydration, hypotension, rhabdomyolysis. Has received IV fluid resuscitation and now on continuous IV fluids. Continue to trend labs. Nephrology following. (6) Rhabdomyolysis: Code(s): M62.82 - Rhabdomyolysis Status: Acute Assessment and Plan: CK trending down. (7) Liver failure: Code(s): K72.90 - Hepatic failure, unspecified without coma Status: Acute Assessment and Plan: Elevated LFTs on admission. Hepatitis panel negative. Likely secondary to hypotension/septic shock. (8) Chronic obstructive pulmonary disease: Code(s): J44.9 - Chronic obstructive pulmonary disease, unspecified Status: Acute (9) Crohn's disease: Code(s): K50.90 - Crohn's disease, unspecified, without complications Status: Acute Assessment and Plan: Hx of Crohn's disease. Does not appear to be on any immunosuppressant therapy. CT showed evidence of chronic wall thickening of a 20 cm segment of terminal ileum, consistent with Crohn disease. Chronic findings, no acute issues. Additional Plan Discussed the patient's case and formulated plan of care with Dr. Ruiz. Subjective Subjective Date/Time Seen: 11/28/20 15:10 Interval history: Patient intubated and sedated in ICU. Review of Systems Review of Systems: ROS unobtainable: Yes unobtainable due to endotracheal tube Exam Const: General: comfortable Other: Intubated and sedated. Not arousable or opening eyes on my exam. HENMT: Mouth: Yes other (ETT) Resp: Effort & Inspection: abnormal respiratory pattern (on mechanical ventilator) Auscultation: rhonchi throughout Cardio: Rate: tachycardic Rhythm: regular rhythm GI: Inspection: non-distended and scar (large vertical midline scar) GI Palp: Yes Soft to palpation and No Rigid due to palpation Auscultation: Hypoactive bowel sounds present Urinary
--- NOTE | 2020-11-28 16:50 | WPDGIPROGNO ---
Progress Note: A&P Assessment and Plan (1) Shock liver: Code(s): K72.00 - Acute and subacute hepatic failure without coma Status: Acute Assessment and Plan: he is quite sick, on 2 pressors and most likely from septic shock (2) Septic shock: Code(s): A41.9 - Sepsis, unspecified organism; R65.21 - Severe sepsis with septic shock Status: Acute Assessment and Plan: on pressors, covid negative pending blood cultures, on broad spectrum abx- probably pulmonary source also reviewed CT head, possible anoxic injury (3) Acute respiratory failure: Code(s): J96.00 - Acute respiratory failure, unspecified whether with hypoxia or hypercapnia Status: Acute Assessment and Plan: intubated (4) Pneumonia: Code(s): J18.9 - Pneumonia, unspecified organism Status: Acute Assessment and Plan: sick, intubated (5) Elevated LFTs: Code(s): R79.89 - Other specified abnormal findings of blood chemistry Status: Acute (6) ANDREY (acute kidney injury): Code(s): N17.9 - Acute kidney failure, unspecified Status: Acute Assessment and Plan: worsening renal failure, nephrology on board (7) Chronic obstructive pulmonary disease: Code(s): J44.9 - Chronic obstructive pulmonary disease, unspecified Status: Acute (8) Bilateral pneumonia: Code(s): J18.9 - Pneumonia, unspecified organism Status: Acute (9) Crohn's disease: Code(s): K50.90 - Crohn's disease, unspecified, without complications Status: Acute Assessment and Plan: abnormal ileum raising possible of Crohn's but unknown medical history if her recovers, then I can see him in office, will sign off (10) Peripheral vascular disease: Code(s): I73.9 - Peripheral vascular disease, unspecified Status: Acute Assessment and Plan: on heparin gtt (11) Prolonged INR: Code(s): R79.1 - Abnormal coagulation profile Status: Acute Assessment and Plan: with coagulopathy and septic shock Subjective Date/time seen: 11/28/20 16:50 Interval history: still intubated, 2 pressors, also iv heparin because ischemic changes in legs. Critically ill CT head also notes with possible anoxic changes Review of Systems Review of Systems: All systems reviewed & are unremarkable except as noted in HPI and below Exam Const: General: comfortable Other: Intubated and sedated. Not arousable or opening eyes on my exam. HENMT: Mouth: Yes other (ETT) Resp: Effort & Inspection: abnormal respiratory pattern (on mechanical ventilator) Auscultation: rhonchi throughout Cardio: Rate: tachycardic Rhythm: regular rhythm GI: Inspection: non-distended and scar (large vertical midline scar) GI Palp: Yes Soft to palpation and No Rigid due to palpation Auscultation: Hypoactive bowel sounds present Urinary Catheter: Urinary Catheter: patent and draining Skin: General skin exam: pallor Other: Mottled bilateral lower extremities. Unable to palpate or obtain doppler waveform for DP or PT pulses bilaterally. Neuro: General: patient obtunded Other: Limited d/t being intubated/sedated. Patient not opening eyes or following commands Extrem: Right lower extremity: foot Details: vascular exam Details: abnormal capillary refill and coolness Left lower extremity: cyanosis and foot Details: vascular exam Details: abnormal capillary refill and coolness Objective Data Vital Signs Vital Signs: Vital Signs - 24 hr 11/27/20 17:42 11/27/20 18:00 11/27/20 20:00 Temperature 99.0 F 99.3 F Pulse Rate 106 H 107 H 106 H Respiratory Rate 28 H 24 H Blood Pressure 98/55 L 101/51 L Pulse Oximetry 94 92 94 11/27/20 20:04 11/27/20 20:05 11/27/20 20:11 Temperature Pulse Rate 107 H 108 H 108 H Respiratory Rate 24 H 24 H Blood Pressure Pulse Oximetry 93 11/27/20 22:00 11/27/20 22:28 11/27/20 23:00 Temperature 99.6 F Pulse Rate 110 H 110 H R
[2020-11-28 17:06] LABS: Glucose Point of Care 110 (65-105)
[2020-11-28] MEDS: VASOPRESSIN INJ 100 UNITS in DEXTROSE 5% 95 ML IV CONT (18:34)
[2020-11-28 19:50] LABS: Glucose Point of Care 96 (65-105)
[2020-11-28 20:28] LABS: Partial Thromboplastin Time 81.3 SECONDS (22.3-36.8)
[2020-11-28 22:41] LABS: Glucose Point of Care 102 (65-105)
[2020-11-29] VITALS (43 sets, daily range): BP systolic 81–121; BP diastolic 61–80; PULSE 92–160; RESP 4–28; TEMP 36.6–37.5; O2SAT 93–98
[2020-11-29] MEDS: ALBUMIN HUMAN 25% 25 GM/100 ML 100 ML IVPB ×4 (00:01→18:07)
[2020-11-29] MEDS: HYDROCORTISONE SODIUM SUCCINATE 100 MG/2 ML VIAL IV PUSH ×3 (00:02→18:11)
[2020-11-29 00:53] LABS: Glucose Point of Care 102 (65-105)
[2020-11-29] MEDS: NOREPINEPHRINE 8 MG/D5W 250 ML 8 MG/250 ML BAG 37.5 MG IV CONT (01:31)
[2020-11-29] MEDS: IPRATROPIUM BR 0.02% INH SOLN 0.5 MG/2.5 ML VIAL INHALATION ×4 (01:56→21:07)
[2020-11-29] MEDS: ALBUTEROL SULFATE NEB 2.5 MG/0.5 ML INH INHALATION ×4 (01:56→21:07)
[2020-11-29 02:13] LABS: Glucose Point of Care 198 (65-105)
[2020-11-29 02:30] LABS: Partial Thromboplastin Time 67.1 SECONDS (22.3-36.8)
[2020-11-29] MEDS: HEPARIN SODIUM 5,000 UNITS/ML VIAL 3000 UNITS IV PUSH (02:56)
[2020-11-29 04:30] LABS: Hematocrit 30.1 % (42.0-52.0); Hemoglobin 10.3 g/dL (14.0-18.0); Mean Corpuscular HGB Conc 34.2 g/dl (32-36); Mean Corpuscular Hemoglobin 29.5 pg (26-34); Mean Corpuscular Volume 86.2 fl (80-100); Mean Platelet Volume 11.1 fl (7.4-10.4); Platelet Count Result 199 k/mm3 (150-375); Red Blood Count 3.49 M/mm3 (4.6-6.20); Red Cell Distribution Width 19.4 % (11.5-14.5); White Blood Count 18.1 K/mm3 (4.5-10.0)
[2020-11-29 04:49] LABS: Lactic Acid Reflex 2.3 mmol/L (0.7-2.1)
[2020-11-29 05:00] LABS: Alkaline Phosphatase 171 U/L (38-126); Anion Gap 7 mmol/L (8-16); Bilirubin,Total 4.9 mg/dL (0.2-1.3); Blood Urea Nitrogen 54 mg/dL (9-20); Calcium 7.2 mg/dL (8.4-10.2); Carbon Dioxide 30 mmol/L (22-30); Chloride 85 mmol/L (98-107); Estimated CRCL calculation 46 ml/min; Estimated Glomerular Filt Rate 44; Glucose 147 mg/dL (75-110); Magnesium 1.5 mg/dL (1.6-2.3); Phosphorus 4.2 mg/dL (2.5-4.5); Potassium 3.4 mmol/L (3.4-5.0); Sodium 122 mmol/L (137-145)
[2020-11-29 05:01] LABS: Alanine Aminotransferase 898 U/L (4-50); Aspartate Amino Transferase 1285 U/L (17-59)
[2020-11-29 05:26] LABS: Alveolar/Arterial O2 Gradient 161.4 mmHg; Base Excess ABG 0.7 mEq/l (+/-2.0); Carboxyhemoglobin 0.4 % THb (0-2.0); Device VENTILATOR; Fractional Inspired Oxygen 40 %; HCO3 ABG 25.9 mEq/l (22.0-26.0); Methemoglobin ABG 0.1 %THb (0-1.5); Modified Allen's Test Pass; Oxygen Saturation ABG 94.6 % (95.0-100.0); Oxyhemoglobin 92.7 % THb (90.0-100.0); PCO2 ABG 43.8 mmHg (35.0-45.0); PO2 ABG 73.4 mmHg (80.0-100.0); PO2 FiO2 Ratio Arterial Blood 1.84 %; Reduced Hemoglobin 6.8 %THb (0-5.0); Site Drawn LEFT RADIAL; Total Hemoglobin 11.5 g/dL (12.0-18.0); pH ABG 7.389 (7.350-7.450)
[2020-11-29 05:27] LABS: Arterial Blood Gas PEEP 8 cmH2O; Arterial Blood Gas Vent Mode CMV; Arterial Blood Gas Ventilator rate 24 /MIN
[2020-11-29 05:28] LABS: Arterial Blood Gas Tidal Volume 450 ml
[2020-11-29] MEDS: HEPARIN SOD/D5W 100 UNITS/ML 25,000 UNITS/250 ML BAG 12 UNITS IV CONT (05:31)
[2020-11-29 06:56] LABS: Glucose Point of Care 148 (65-105)
[2020-11-29] MEDS: CEFEPIME 2 GM in DEXTROSE 5% IN WATER 50 ML IVPB ×2 (06:59→20:00)
[2020-11-29 07:28] LABS: Reflex Lactic Acid Yes or No Add Lactic
[2020-11-29] MEDS: dexmedeTOMIDine 400 MCG/100 ML 400 MCG/100 ML BAG IV CONT (08:03)
--- NOTE | 2020-11-29 08:40 | WPDINTPN ---
Progress Note: A&P Assessment and Plan (1) Acute respiratory failure: Code(s): J96.00 - Acute respiratory failure, unspecified whether with hypoxia or hypercapnia Status: Acute Assessment and Plan: Acute respiratory failure likely related to pneumonia, metabolic acidosis, septic shock, pulmonary edema -currently intubated, on CMV mode of ventilation, peep of 8 and 40% FiO2, ABGs and chest x-ray reviewed, wean FiO2 to maintain O2 sats greater than 92% - patient has a history of COPD, continue bronchodilators -continue cefepime vancomycin -patient has been off of sedation and now is currently being dyssynchronous with the ventilator. Will use Precedex instead of Versed and fentanyl to allow safe mechanical ventilation (2) Septic shock: Code(s): A41.9 - Sepsis, unspecified organism; R65.21 - Severe sepsis with septic shock Status: Acute Assessment and Plan: Patient presented with altered mental status, decreased p.o. intake, hypotension, dehydration, acute kidney injury, elevated liver enzymes, lactic acidosis -septic shock likely related to pneumonia -continue antibiotics as above -urine and blood cultures have been obtained and negative ten now -patient was adequately fluid-resuscitated with approximately 5 L IV fluid and currently off of IV fluids -lactic acid has normalized -continue vasopressin and Levophed, maintain mean arterial pressures > 70 mmHg -continue hydrocortisone (3) Peripheral vascular disease: Code(s): I73.9 - Peripheral vascular disease, unspecified Status: Acute Assessment and Plan: Patient with bilateral lower extremity peripheral vascular disease with discoloration and mottling along with cold feet bilaterally -venous Dopplers negative for DVT -both extremities are cold and mild below the knees likely secondary to diffuse PAD and vasopressors -exam appears to have improved today marginally patient has been resuscitated and hemodynamics have improved -both legs are symmetrically involved and this appears to be secondary to PAD, rhabdo and shock and not secondary to thrombosis -I will DC heparin infusion and continue to maintain adequate blood pressure to maintain perfusion -on talking to his mother it appears that these are chronic problem that patient was dealing with although she was unable to give me any details about whether he has had any workup done in the past but he is a heavy smoker (4) Acute renal failure (ARF): Qualifiers: Acute renal failure type: with acute tubular necrosis Qualified Code(s): N17.0 - Acute kidney failure with tubular necrosis Code(s): N17.9 - Acute kidney failure, unspecified Status: Acute Assessment and Plan: Acute renal failure likely multifactorial secondary to septic shock, infection, rhabdomyolysis, dehydration, decreased p.o. intake -patient has been adequately fluid-resuscitated, -creatinine and urine output has improved -CK level has decreased -off bicarb infusion -continue to monitor renal function, electrolytes and urine output -nephrology has been consulted -renal ultrasound was unremarkable (5) Rhabdomyolysis: Code(s): M62.82 - Rhabdomyolysis Status: Acute Assessment and Plan: Elevated CK related to rhabdomyolysis causing renal dysfunction -CK level improving -patient has been adequately fluid-resuscitated (6) Pneumonia: Code(s): J18.9 - Pneumonia, unspecified organism Status: Acute Assessment and Plan: Chest x-ray shows pneumonia, continue antibiotics as above -bronchodilators -currently intubated on mechanical ventilation (7) Suspected 2019 novel coronavirus infection: Code(s): Z20.822 - Contact with and (suspected) exposure to COVID-19 Status: Acute Assessment and Plan: SARS-CoV-2 PCR negative Off of droplet, airborne and contact isolation/precautions (8) Elevated LFTs: Code(s): R79.89 - Other specified abnormal findings o
[2020-11-29] MEDS: CALCIUM CHLOR 1,000MG/100ML NS 1,000 MG/100 ML BAG 100 MG IVPB (09:23)
[2020-11-29] MEDS: MAGNESIUM SULF 2 GM/WATER 50ML 2 GM/50 ML BAG IVPB (09:23)
[2020-11-29] MEDS: PANTOPRAZOLE SODIUM IV 40 MG VIAL IV PUSH (09:24)
[2020-11-29] MEDS: SODIUM CHLORIDE 1 GM TABLET PO ×2 (09:24→18:12)
[2020-11-29 09:37] LABS: Ammonia < 9 umol/L (9-30)
[2020-11-29] MEDS: NOREPINEPHRINE 8 MG/D5W 250 ML 8 MG/250 ML BAG 28.13 MG IV CONT ×2 (09:40→18:07)
--- NOTE | 2020-11-29 10:17 | ECG_ITS ---
Measurements Intervals [place] Rate: 144 P: [place]: 0 QRS: -55 QRSD: 101 T: 94 QT: 294 QTc: 456 Interpretive Statements ATRIAL FIBRILLATION WITH RAPID VENTRICULAR RESPONSE LEFT AXIS DEVIATION INCOMPLETE RIGHT BUNDLE BRANCH BLOCK NONSPECIFIC T-WAVE ABNORMALITY- ANTEROLAT/HIGH LAT LEADS BASELINE WANDER- I, III, AVL, AVF, V3-V5 ABNORMAL ECG Electronically Signed On 11-29-2020 11:30:46 PARISH WORKER by Camacho Palafox D.O.
[2020-11-29] MEDS: AMIODARONE 150 MG/D5W 100 ML 150 MG/100 ML BAG 600 MG IV CONT ×2 (10:40→12:14)
[2020-11-29] MEDS: AMIODARONE 360 MG/D5W 200 ML 360 MG/200 ML BAG 33.33 MG IV CONT (10:51)
--- NOTE | 2020-11-29 11:30 | PCDIET ---
Nutrition Follow-Up Complete: Nutrition Diagnosis: Inadequate oral intake related to oral intubation as evidenced by NPO status. Nutrition Goal: Patient to meet estimated nutritional needs. Goal in progress. Patient receiving Vital 1.2 at 30mL/hr with residuals 200mL and below. MD order to increase toward goal of 65mL/hr. Last recorded weight is 74.6 kg which is increased from last review. Bowel Motility: No documented BM as of yet. Labs Reviewed: Hgb (10.3), Hct (30.1), Glu (147), BUN (54), Cr (1.6), Na (122), Alb (3.0), Amy Ca (8.0), Mg (1.5) Meds Noted: Albumin, Albuterol, Cefepime, Solu Cortef, Sodium Chloride, Vancomycin, Vasopressin, Precedex, Fentanyl, Atrovent, Levophed, Protonix, Calcium Chloride, Magnesium Sulfate Additional Notes: No documented pressure sores. Will continue to monitor with same goal. Nutrition Monitoring and Evaluation: Follow up every Wednesday/Wednesday. Follow daily in ICU rounds.
--- NOTE | 2020-11-29 11:36 | PM.PNNEP ---
Progress Note: A&P Assessment and Plan (1) ANDREY (acute kidney injury): Code(s): N17.9 - Acute kidney failure, unspecified Status: Acute Assessment and Plan: improving likely due to ATN from: - hemodynamic instability/hypotension - sepsis (pneumonia + lower extremities) - mild rhabdomyolysis - pre-renal factors renal ultrasound ultrasound normal urine electrolytes with pre-renal azotemia follow repeat labs and UOP with current interventions (2) Hyponatremia: Code(s): E87.1 - Hypo-osmolality and hyponatremia Status: Acute Assessment and Plan: related to ANDREY/ARF, IV/IVPB meds with D5W carrier fluid, cardiomyopathy, and fluid retention difficult situation - would avoid 3% saline given fluid overload and cardiomyopathy consider diuresis but hemodynamics may not allow for that consider normal saline tube flushes change all medication carrier fluid to normal saline if possible (3) Septic shock: Code(s): A41.9 - Sepsis, unspecified organism; R65.21 - Severe sepsis with septic shock Status: Acute Assessment and Plan: consistent with admission parameters -- altered mental status, poor p.o. intake, hypotension, acute kidney injury, and lactic acidosis presumably related to pneumonia but lower extremities could be a source follow culture data continue antibiotics vasopressor support to maintain MAP continue supportive therapy (4) Acute respiratory failure: Code(s): J96.00 - Acute respiratory failure, unspecified whether with hypoxia or hypercapnia Status: Acute Assessment and Plan: due to a combination of pneumonia, sepsis, and pulmonary edema continue ventilator support at this time wean when more stable (5) Pneumonia: Code(s): J18.9 - Pneumonia, unspecified organism Status: Acute Assessment and Plan: follow cultures follow imaging on antibiotics (6) Rhabdomyolysis: Code(s): M62.82 - Rhabdomyolysis Status: Acute Assessment and Plan: CPK trending down IVFs as tolerated follow for now (7) Peripheral vascular disease: Code(s): I73.9 - Peripheral vascular disease, unspecified Status: Acute Assessment and Plan: seems quite severe by exam likely worsened by the need for vasopressor therapy (8) Elevated LFTs: Code(s): R79.89 - Other specified abnormal findings of blood chemistry Status: Acute Assessment and Plan: consistent with shock liver follow trend of LFTs Will continue to follow. Subjective Date/time seen: 11/29/20 11:36 Remains on ventilator support as well as vasopressor therapy although requirement appear to have decreased somewhat; otherwise no real change apparent. Exam Narrative: Exam Narrative: General: ill appearing male intubated Heart: normal S1 and S2; no rub Lungs: clear to auscultation Abdomen: soft, nontender, nondistended, positive bowel sounds Extremities: no cyanosis or clubbing; trace edema Skin: discolored and cyanotic (lower extremities) Objective Data Vital Signs Vital Signs: Vital Signs Temp Pulse Resp BP Pulse Ox 11/29/20 11:00 124 H 24 H 11/29/20 10:53 143 H 81/61 L 11/29/20 10:51 143 H 81/63 L 11/29/20 10:48 140 H 94 11/29/20 10:40 160 H 113/72 11/29/20 10:00 154 H 24 H 118/71 94 11/29/20 09:40 94 107/65 11/29/20 09:03 101 H 24 H 11/29/20 08:44 101 H 94 11/29/20 08:42 105 H 28 H 11/29/20 08:03 104 H 24 H 11/29/20 08:00 129 H 24 H 94 11/29/20 06:00 107 H 24 H 104/62 96 11/29/20 05:52 110 H 4 L 11/29/20 05:00 109 H 93 11/29/20 04:00 36.6 C 104 H 24 H 98/64 L 97 11/29/20 02:35 96 11/29/20 02:00 104 H 24 H 121/67 97 11/29/20 01:59 105 H 24 H 11/29/20 00:15 98 11/29/20 00:06 108/80 11/29/20 00:00 36.8
--- NOTE | 2020-11-29 11:36 | P.PNNP_ITS ---
Progress Note: A&P Assessment and Plan (1) ANDREY (acute kidney injury): Code(s): N17.9 - Acute kidney failure, unspecified Status: Acute Assessment and Plan: * improving * likely due to ATN from: - hemodynamic instability/hypotension - sepsis (pneumonia + lower extremities) - mild rhabdomyolysis - pre-renal factors * renal ultrasound ultrasound normal * urine electrolytes with pre-renal azotemia * follow repeat labs and UOP with current interventions (2) Hyponatremia: Code(s): E87.1 - Hypo-osmolality and hyponatremia Status: Acute Assessment and Plan: * related to ANDREY/ARF, IV/IVPB meds with D5W carrier fluid, cardiomyopathy, and fluid retention * difficult situation - would avoid 3% saline given fluid overload and cardiomyopathy * consider diuresis but hemodynamics may not allow for that * consider normal saline tube flushes * change all medication carrier fluid to normal saline if possible (3) Septic shock: Code(s): A41.9 - Sepsis, unspecified organism; R65.21 - Severe sepsis with septic shock Status: Acute Assessment and Plan: * consistent with admission parameters -- altered mental status, poor p.o. intake, hypotension, acute kidney injury, and lactic acidosis * presumably related to pneumonia but lower extremities could be a source * follow culture data * continue antibiotics * vasopressor support to maintain MAP * continue supportive therapy (4) Acute respiratory failure: Code(s): J96.00 - Acute respiratory failure, unspecified whether with hypoxia or hypercapnia Status: Acute Assessment and Plan: * due to a combination of pneumonia, sepsis, and pulmonary edema * continue ventilator support at this time * wean when more stable (5) Pneumonia: Code(s): J18.9 - Pneumonia, unspecified organism Status: Acute Assessment and Plan: * follow cultures * follow imaging * on antibiotics (6) Rhabdomyolysis: Code(s): M62.82 - Rhabdomyolysis Status: Acute Assessment and Plan: * CPK trending down * IVFs as tolerated * follow for now (7) Peripheral vascular disease: Code(s): I73.9 - Peripheral vascular disease, unspecified Status: Acute Assessment and Plan: * seems quite severe by exam * likely worsened by the need for vasopressor therapy (8) Elevated LFTs: Code(s): R79.89 - Other specified abnormal findings of blood chemistry Status: Acute Assessment and Plan: * consistent with shock liver * follow trend of LFTs Will continue to follow. Subjective Date/time seen: 11/29/20 11:36 Remains on ventilator support as well as vasopressor therapy although requirement appear to have decreased somewhat; otherwise no real change apparent. Exam Narrative: Exam Narrative: General: ill appearing male intubated Heart: normal S1 and S2; no rub Lungs: clear to auscultation Abdomen: soft, nontender, nondistended, positive bowel sounds Extremities: no cyanosis or clubbing; trace edema Skin: discolored and cyanotic (lower extremities) Objective Data Vital Signs Vital Signs: Vital Signs Temp Pulse Resp BP Pulse Ox 11/29/20 11:00 124 H 24 H 11/29/20 10:53 143 H 81/61 L 11/29/20 10:51 143 H 81/63 L 11/29/20 10:48 140 H 94 11/29
[2020-11-29] MEDS: ENOXAPARIN 40 MG/0.4 ML SYRINGE SUB-Q (12:12)
[2020-11-29 12:23] LABS: Glucose Point of Care 156 (65-105)
--- NOTE | 2020-11-29 12:40 | PM.CNCAR ---
Assessment and Plan Assessment and plan (1) Shock liver: Code(s): K72.00 - Acute and subacute hepatic failure without coma Status: Acute Assessment and Plan: Monitor. (2) Tobacco dependence: Code(s): F17.200 - Nicotine dependence, unspecified, uncomplicated Status: Acute (3) Peripheral vascular disease: Code(s): I73.9 - Peripheral vascular disease, unspecified Status: Acute (4) Acute respiratory failure: Code(s): J96.00 - Acute respiratory failure, unspecified whether with hypoxia or hypercapnia Status: Acute Assessment and Plan: On mechanical ventilation. Management as per bench repair technician. (5) Rhabdomyolysis: Code(s): M62.82 - Rhabdomyolysis Status: Acute (6) Elevated troponin: Code(s): R77.8 - Other specified abnormalities of plasma proteins Status: Acute Assessment and Plan: Moderately elevated. Probably due to septic shock. (7) Hyponatremia: Code(s): E87.1 - Hypo-osmolality and hyponatremia Status: Acute Assessment and Plan: Monitor. Avoid free water. (8) Pneumonia: Code(s): J18.9 - Pneumonia, unspecified organism Status: Acute Assessment and Plan: On antibiotics. Management per bench repair technician. (9) Acute renal failure (ARF): Qualifiers: Acute renal failure type: with acute tubular necrosis Qualified Code(s): N17.0 - Acute kidney failure with tubular necrosis Code(s): N17.9 - Acute kidney failure, unspecified Status: Acute Assessment and Plan: Nephrology consulted. (10) Cardiogenic shock: Code(s): R57.0 - Cardiogenic shock Status: Acute Assessment and Plan: Poor prognosis given multiorgan failure. Diurese as needed and if can maintain mean SBP >60 mmHg. If and when vasopressors are able to be weaned off, and extubated then consider left heart cath to assess coronary anatomy. (11) Atrial fibrillation with RVR: Code(s): I48.91 - Unspecified atrial fibrillation Status: Acute Assessment and Plan: Agree with Amiodarone to restore sinus rhythm. Agree with second bolus then resume drip to maintain sinus rhythm if cardioverts. Due to low BP and on vasopressors incuding Vasopressin and Levophed, cannot control rate with AV barron blocking agents such as beta griselda and calcium channel blockers. Not on anticoagulation because of high INR of 4.5 on 11/27/20. Was on heparin drip also. History of Present Illness History of Present Illness Consult date/time: 11/29/20 12:40 Reason for consult: Systolic heart failure and atrial fib. 60 yr old man presented to ER with confusion. History is obtained from medical records/chart as patient is intubated/sedated currently and no family member is currently available. He lives with his mother. He has a history of COPD, smoking but no prior known cardiac problems. He is very ill with multiorgan failure including respiratory failure, septic shock, renal failure, rhabomyolsys, hyponatremia, an echo was done which showed EF <15% with severe pulm hypertension, and he went into rapid atrial fibrillation this morning. He is on Levophed drip and Vasopressin. Given a bolus of Amiodarone then a drip started but he is still in atrial fib with RVR, and a second bolus being given now. Reason For Visit: Septic shock, ANDREY Review of Systems Review of Systems: ROS unobtainable: Yes unobtainable due to endotracheal tube, unobtainable due to medical condition and unobtainable due to mental status PMFSH Past Medical History Medical History (Updated 11/29/20 @ 12:54 by Camacho Palafox DO) Chronic back pain Chronic obstructive pulmonary disease Chronic respiratory failure Previously on home oxygen. Colon polyps Crohn's disease Gastroesophageal reflux disease Hard of hearing Osteoarthritis Prolonged INR Pulmonary nodules Shock liver Tobacco dependence UTI (urinary tract infection) Surgical History
[2020-11-29] MEDS: AMIODARONE 360 MG/D5W 200 ML 360 MG/200 ML BAG 16.67 MG IV CONT (16:05)
[2020-11-29] MEDS: dexmedeTOMIDine 400 MCG/100 ML 400 MCG/100 ML BAG 9.33 MCG IV CONT (18:38)
[2020-11-29 20:15] LABS: Glucose Point of Care 168 (65-105)
[2020-11-29 23:54] LABS: Vancomycin Trough 12.8 ug/mL (10.0-20.0)
[2020-11-30] VITALS (47 sets, daily range): BP systolic 78–117; BP diastolic 54–77; PULSE 79–123; RESP 20–33; TEMP 35.4–38.4; O2SAT 91–97
[2020-11-30] LABS: Glucose Point of Care 165 (65-105)
[2020-11-30] MEDS: HYDROCORTISONE SODIUM SUCCINATE 100 MG/2 ML VIAL IV PUSH ×2 (00:01→08:39)
[2020-11-30] MEDS: ALBUTEROL SULFATE NEB 2.5 MG/0.5 ML INH INHALATION ×4 (01:58→20:58)
[2020-11-30] MEDS: IPRATROPIUM BR 0.02% INH SOLN 0.5 MG/2.5 ML VIAL INHALATION ×4 (01:58→20:58)
[2020-11-30] MEDS: dexmedeTOMIDine 400 MCG/100 ML 400 MCG/100 ML BAG 11.19 MCG IV CONT (02:35)
[2020-11-30] MEDS: NOREPINEPHRINE 8 MG/D5W 250 ML 8 MG/250 ML BAG 24.38 MG IV CONT (03:35)
[2020-11-30 04:31] LABS: Hematocrit 27.5 % (42.0-52.0); Hemoglobin 9.7 g/dL (14.0-18.0); Mean Corpuscular HGB Conc 35.3 g/dl (32-36); Mean Corpuscular Hemoglobin 28.8 pg (26-34); Mean Corpuscular Volume 81.6 fl (80-100); Mean Platelet Volume 10.1 fl (7.4-10.4); Platelet Count Result 191 k/mm3 (150-375); Red Blood Count 3.37 M/mm3 (4.6-6.20); Red Cell Distribution Width 18.5 % (11.5-14.5)
[2020-11-30 04:49] LABS: Alanine Aminotransferase 560 U/L (4-50); Albumin Level 3.4 g/dL (3.5-5.1); Alkaline Phosphatase 143 U/L (38-126); Anion Gap 10 mmol/L (8-16); Aspartate Amino Transferase 416 U/L (17-59); Bilirubin,Total 4.8 mg/dL (0.2-1.3); Blood Urea Nitrogen 59 mg/dL (9-20); Calcium 8.2 mg/dL (8.4-10.2); Carbon Dioxide 27 mmol/L (22-30); Chloride 86 mmol/L (98-107); Estimated CRCL calculation 49 ml/min; Estimated Glomerular Filt Rate 48; Glucose 164 mg/dL (75-110); Magnesium 1.7 mg/dL (1.6-2.3); Phosphorus 4.6 mg/dL (2.5-4.5); Potassium 3.6 mmol/L (3.4-5.0); Sodium 123 mmol/L (137-145)
[2020-11-30 04:54] LABS: Alveolar/Arterial O2 Gradient 129.7 mmHg; Carboxyhemoglobin 0.7 % THb (0-2.0); Device VENTILATOR; Fractional Inspired Oxygen 35 %; HCO3 ABG 23.2 mEq/l (22.0-26.0); Methemoglobin ABG 0.1 %THb (0-1.5); Modified Allen's Test Pass; Oxygen Content ABG 15.1 %vol (16.0-22.0); Oxygen Saturation ABG 96.6 % (95.0-100.0); Oxyhemoglobin 94.4 % THb (90.0-100.0); PCO2 ABG 33.2 mmHg (35.0-45.0); PO2 ABG 81.3 mmHg (80.0-100.0); PO2 FiO2 Ratio Arterial Blood 2.32 %; Reduced Hemoglobin 4.8 %THb (0-5.0); Site Drawn LEFT RADIAL; Total Hemoglobin 11.3 g/dL (12.0-18.0); pH ABG 7.463 (7.350-7.450)
[2020-11-30 04:55] LABS: Arterial Blood Gas PEEP 8 cmH2O; Arterial Blood Gas Tidal Volume 450 ml; Arterial Blood Gas Vent Mode CMV; Arterial Blood Gas Ventilator rate 24 /MIN
[2020-11-30 05:08] LABS: Creatine Kinase 766 U/L (55-170)
[2020-11-30] MEDS: CEFEPIME 2 GM in DEXTROSE 5% IN WATER 50 ML IVPB ×2 (05:45→17:42)
[2020-11-30] MEDS: AMIODARONE 360 MG/D5W 200 ML 360 MG/200 ML BAG 16.67 MG IV CONT ×2 (06:24→17:39)
--- NOTE | 2020-11-30 07:08 | ECG_ITS ---
Measurements Intervals [place] Rate: 102 P: 69 [place]: 136 QRS: -37 QRSD: 104 T: 64 QT: 377 QTc: 493 Interpretive Statements SINUS TACHYCARDIA POSSIBLE LEFT ATRIAL ENLARGEMENT LEFT AXIS DEVIATION INCOMPLETE RIGHT BUNDLE BRANCH BLOCK DELAYED PRECORDIAL R/S TRANSITION BORDERLINE T WAVE ABNORMALITY- ANTERIOR LEADS BASELINE ARTIFACT- I BORDERLINE ECG Electronically Signed On 11-30-2020 8:22:35 EMPLOYEE RELATIONS ADMINISTRATOR by Camacho Palafox D.O.
--- NOTE | 2020-11-30 08:23 | PM.PNCARD ---
Progress Note: A&P Assessment and Plan (1) Shock liver: Code(s): K72.00 - Acute and subacute hepatic failure without coma Status: Acute Assessment and Plan: Monitor. (2) Tobacco dependence: Code(s): F17.200 - Nicotine dependence, unspecified, uncomplicated Status: Acute (3) Peripheral vascular disease: Code(s): I73.9 - Peripheral vascular disease, unspecified Status: Acute (4) Acute respiratory failure: Code(s): J96.00 - Acute respiratory failure, unspecified whether with hypoxia or hypercapnia Status: Acute Assessment and Plan: On mechanical ventilation. Management as per fashion consultant selling. (5) Rhabdomyolysis: Code(s): M62.82 - Rhabdomyolysis Status: Acute (6) Elevated troponin: Code(s): R77.8 - Other specified abnormalities of plasma proteins Status: Acute Assessment and Plan: Moderately elevated. Probably due to septic shock. (7) Hyponatremia: Code(s): E87.1 - Hypo-osmolality and hyponatremia Status: Acute Assessment and Plan: Monitor. Avoid free water. (8) Pneumonia: Code(s): J18.9 - Pneumonia, unspecified organism Status: Acute Assessment and Plan: On antibiotics. Management per fashion consultant selling. (9) Acute renal failure (ARF): Qualifiers: Acute renal failure type: with acute tubular necrosis Qualified Code(s): N17.0 - Acute kidney failure with tubular necrosis Code(s): N17.9 - Acute kidney failure, unspecified Status: Acute Assessment and Plan: Nephrology following. (10) Atrial fibrillation with RVR: Code(s): I48.91 - Unspecified atrial fibrillation Status: Acute Assessment and Plan: Restored sinus rhythm with Amiodarone since 4 pm 11/29/20. Due to low BP and on vasopressors incuding Vasopressin and Levophed, cannot control rate with AV barron blocking agents such as beta griselda and calcium channel blockers. Not on anticoagulation because of high INR of 4.5 on 11/27/20. Was on heparin drip also. (11) Systolic heart failure: Code(s): I50.20 - Unspecified systolic (congestive) heart failure Status: Acute Assessment and Plan: Poor prognosis given multiorgan failure. Diurese as needed and if can maintain mean SBP >60 mmHg. If and when vasopressors are able to be weaned off, and extubated then consider left heart cath to assess coronary anatomy. (12) Septic shock: Code(s): A41.9 - Sepsis, unspecified organism; R65.21 - Severe sepsis with septic shock Status: Acute Assessment and Plan: On antibiotics and vasopressors. Management per fashion consultant selling. Subjective Date/time seen: 11/30/20 08:23 Patient is sedated on mechanical ventilation. Exam Const: Other: Intubated on mechanical ventilation. Resp: Auscultation: no rhonchi, no wheezes and diminished lung sounds Other: Coarse breath sounds bilaterally Cardio: Rate: tachycardic Rhythm: regular rhythm Heart sounds: no murmurs GI: GI Palp: Yes Soft to palpation Extrem: Right lower extremity: cyanosis and edema Left lower extremity: cyanosis and edema Other: Trace edema of both legs Objective Data Vital Signs Vital Signs: Vital Signs - 24 hr 11/29/20 08:42 11/29/20 08:44 11/29/20 09:03 Temperature Pulse Rate 105 H 101 H 101 H Respiratory Rate 28 H 24 H Blood Pressure Pulse Oximetry 94 11/29/20 09:40 11/29/20 10:00 11/29/20 10:40 Temperature Pulse Rate 94 154 H 160 H Respiratory Rate 24 H Blood Pressure 107/65 118/71 113/72 Pulse Oximetry 94 11/29/20 10:48 11/29/20 10:51 11/29/20 10:53 Temperature Pulse Rate 140 H 143 H 143 H Respiratory Rate Blood Pressure 81/63 L 81/61 L Pulse Oximetry 94 11/29/20 11:00 11/29/20 12:00 11/29/20 12:11 Temperature Pulse Rate 124 H 121 H 153 H Respiratory Rate 24 H 24 H Blood Pressure 101/74 Pulse Oximetry 95 11/29/20 12:14 11/29/20 12:38
[2020-11-30] MEDS: PANTOPRAZOLE SODIUM IV 40 MG VIAL IV PUSH (08:39)
[2020-11-30] MEDS: ENOXAPARIN 40 MG/0.4 ML SYRINGE SUB-Q (08:39)
[2020-11-30 08:42] LABS: Glucose Point of Care 160 (65-105)
[2020-11-30] MEDS: dexmedeTOMIDine 400 MCG/100 ML 400 MCG/100 ML BAG 9.33 MCG IV CONT ×2 (12:01→22:00)
--- NOTE | 2020-11-30 12:03 | WPDINTPN ---
Progress Note: A&P Assessment and Plan (1) Acute respiratory failure: Code(s): J96.00 - Acute respiratory failure, unspecified whether with hypoxia or hypercapnia Status: Acute Assessment and Plan: Acute respiratory failure likely related to pneumonia, metabolic acidosis, septic shock, pulmonary edema -currently intubated, on CMV mode of ventilation, peep of 8 and 40% FiO2, ABGs and chest x-ray reviewed, wean FiO2 to maintain O2 sats greater than 92% - patient has a history of COPD, continue bronchodilators -continue cefepime vancomycin -sputum is growing Pseudomonas. We will continue cefepime but discontinue vancomycin. -we will add Levaquin 750 mg Q 48 hours until susceptibility pattern is back. (2) Septic shock: Code(s): A41.9 - Sepsis, unspecified organism; R65.21 - Severe sepsis with septic shock Status: Acute Assessment and Plan: Patient presented with altered mental status, decreased p.o. intake, hypotension, dehydration, acute kidney injury, elevated liver enzymes, lactic acidosis -septic shock likely related to pneumonia -continue antibiotics as above -urine and blood cultures have been obtained and negative ten now -patient was adequately fluid-resuscitated with approximately 5 L IV fluid and currently off of IV fluids -lactic acid has normalized -continue vasopressin and Levophed, maintain mean arterial pressures > 70 mmHg -continue hydrocortisone (3) Peripheral vascular disease: Code(s): I73.9 - Peripheral vascular disease, unspecified Status: Acute Assessment and Plan: Patient with bilateral lower extremity peripheral vascular disease with discoloration and mottling along with cold feet bilaterally -venous Dopplers negative for DVT -both extremities are cold and mild below the knees likely secondary to diffuse PAD and vasopressors -exam appears to have improved today marginally patient has been resuscitated and hemodynamics have improved -both legs are symmetrically involved and this appears to be secondary to PAD, rhabdo and shock and not secondary to thrombosis -I will DC heparin infusion and continue to maintain adequate blood pressure to maintain perfusion -on talking to his mother it appears that these are chronic problem that patient was dealing with although she was unable to give me any details about whether he has had any workup done in the past but he is a heavy smoker (4) Acute renal failure (ARF): Qualifiers: Acute renal failure type: with acute tubular necrosis Qualified Code(s): N17.0 - Acute kidney failure with tubular necrosis Code(s): N17.9 - Acute kidney failure, unspecified Status: Acute Assessment and Plan: Acute renal failure likely multifactorial secondary to septic shock, infection, rhabdomyolysis, dehydration, decreased p.o. intake -patient has been adequately fluid-resuscitated, -creatinine and urine output has improved -CK level has decreased -off bicarb infusion -continue to monitor renal function, electrolytes and urine output -nephrology has been consulted -renal ultrasound was unremarkable (5) Rhabdomyolysis: Code(s): M62.82 - Rhabdomyolysis Status: Acute Assessment and Plan: Elevated CK related to rhabdomyolysis causing renal dysfunction -CK level improving -patient has been adequately fluid-resuscitated (6) Pneumonia: Code(s): J18.9 - Pneumonia, unspecified organism Status: Acute Assessment and Plan: Chest x-ray shows pneumonia, continue antibiotics as above -bronchodilators -currently intubated on mechanical ventilation (7) Suspected 2019 novel coronavirus infection: Code(s): Z20.822 - Contact with and (suspected) exposure to COVID-19 Status: Acute Assessment and Plan: SARS-CoV-2 PCR negative Off of droplet, airborne and contact isolation/precautions (8) Elevated LFTs: Code(s): R79.89 - Other specified abnormal findings of blood chemistry
[2020-11-30] MEDS: DOBUTamine 250 MG/D5W 250 ML 250 MG/250 ML BAG 10.37 MG IV CONT (12:07)
--- NOTE | 2020-11-30 16:45 | PM.IMPN ---
Progress Note: A&P Assessment and Plan (1) Septic shock: Code(s): A41.9 - Sepsis, unspecified organism; R65.21 - Severe sepsis with septic shock Status: Acute Assessment and Plan: Blood cultures no growth but continues on vancomycin and cefepime in. Still requiring pressors to maintain mean arterial pressure (2) Acute metabolic encephalopathy: Code(s): G93.41 - Metabolic encephalopathy Status: Acute Assessment and Plan: Secondary to the sepsis shock, COVID pneumonia, (3) Hypoglycemia: Code(s): E16.2 - Hypoglycemia, unspecified Status: Acute Assessment and Plan: Initially low but has responded and continue to monitor (4) Acute hyponatremia: Code(s): E87.1 - Hypo-osmolality and hyponatremia Status: Acute Assessment and Plan: Sodium continues to run low in the 120s. Nephrology following (5) Acute renal failure (ARF): Qualifiers: Acute renal failure type: with acute tubular necrosis Qualified Code(s): N17.0 - Acute kidney failure with tubular necrosis Code(s): N17.9 - Acute kidney failure, unspecified Status: Acute Assessment and Plan: Creatinine peaked at 3 now down to 1.5. No obstruction on ultrasound (6) Bilateral pneumonia: Code(s): J18.9 - Pneumonia, unspecified organism Status: Acute Assessment and Plan: Continue antibiotics. As per coding and reimbursement specialist sputum culture could be colonization but continue coverage for Pseudomonas (7) Liver failure: Code(s): K72.90 - Hepatic failure, unspecified without coma Status: Acute Assessment and Plan: LFT sepsis fallen slowly will continue to monitor, hep profile negative (8) Elevated troponin: Code(s): R77.8 - Other specified abnormalities of plasma proteins Status: Acute Assessment and Plan: Flattened thought secondary to the fever and with that (9) Rhabdomyolysis: Code(s): M62.82 - Rhabdomyolysis Status: Acute Assessment and Plan: CK down to 776 from 4400. Continue to monitor (10) Acute respiratory failure: Code(s): J96.00 - Acute respiratory failure, unspecified whether with hypoxia or hypercapnia Status: Acute Assessment and Plan: Continue fentanyl early support, secondary to pneumonia (11) Tobacco dependence: Code(s): F17.200 - Nicotine dependence, unspecified, uncomplicated Status: Acute Assessment and Plan: Cessation is of utmost importance (12) Crohn's disease: Code(s): K50.90 - Crohn's disease, unspecified, without complications Status: Acute Assessment and Plan: No acute changes and will try to keep out of ICU as much as possible (13) Chronic obstructive pulmonary disease: Code(s): J44.9 - Chronic obstructive pulmonary disease, unspecified Status: Acute Assessment and Plan: Continue inhalers in of dress (14) Peripheral vascular disease: Code(s): I73.9 - Peripheral vascular disease, unspecified Status: Acute Assessment and Plan: Continue to monitor Subjective Date/time seen: 11/30/20 16:45 Interval history: Date of visit 11/30 59-year-old with chronic respiratory failure COPD and Crohn's disease admitted with sepsis with hypotension and acute renal failure. Chest x-ray infiltrates and sputum now growing Pseudomonas. Continues on antibiotics with vancomycin and cefepime. Continues on pressors Exam Narrative: Exam Narrative: Blood pressure 110/70 on Levophed pulse is 90 respirations 24 per minute saturating 95% on FiO2 of 35 with 5 of PEEP Neck is supple Lungs a hear no areas consolidation CV tachy no murmurs heard Abdomen soft nontender no masses Extremities without edema but cool and mottled peripheral extremities Neuro sedated Objective Data Vital Signs Vital Signs: Vital Signs - 24 hr 11/29/20 17:14 11/29/20 18:00 11/29/20 18:07 Temperature Pulse Rate 99 100
--- NOTE | 2020-11-30 17:05 | P.PNNP_ITS ---
Progress Note: A&P Assessment and Plan (1) ANDREY (acute kidney injury): Code(s): N17.9 - Acute kidney failure, unspecified Status: Acute Assessment and Plan: * improving * likely due to ATN from: - hemodynamic instability/hypotension - sepsis (pneumonia + lower extremities) - mild rhabdomyolysis - pre-renal factors * renal ultrasound ultrasound normal * urine electrolytes with pre-renal azotemia * follow repeat labs and UOP with current interventions (2) Hyponatremia: Code(s): E87.1 - Hypo-osmolality and hyponatremia Status: Acute Assessment and Plan: * related to ANDREY/ARF, IV/IVPB meds with D5W carrier fluid, cardiomyopathy, and fluid retention * difficult situation - would avoid 3% saline given fluid overload and cardiomyopathy * consider diuresis but hemodynamics may not allow for that * consider normal saline tube flushes - started on salt tabs pr * change all medication carrier fluid to normal saline if possible (3) Septic shock: Code(s): A41.9 - Sepsis, unspecified organism; R65.21 - Severe sepsis with septic shock Status: Acute Assessment and Plan: * consistent with admission parameters -- altered mental status, poor p.o. intake, hypotension, acute kidney injury, and lactic acidosis * presumably related to pneumonia but lower extremities could be a source * follow culture data * continue antibiotics * vasopressor support to maintain MAP * continue supportive therapy (4) Acute respiratory failure: Code(s): J96.00 - Acute respiratory failure, unspecified whether with hypoxia or hypercapnia Status: Acute Assessment and Plan: * due to a combination of pneumonia, sepsis, and pulmonary edema * continue ventilator support at this time * wean when more stable (5) Pneumonia: Code(s): J18.9 - Pneumonia, unspecified organism Status: Acute Assessment and Plan: * follow cultures * follow imaging * on antibiotics (6) Rhabdomyolysis: Code(s): M62.82 - Rhabdomyolysis Status: Acute Assessment and Plan: * CPK trending down * IVFs as tolerated * follow for now (7) Peripheral vascular disease: Code(s): I73.9 - Peripheral vascular disease, unspecified Status: Acute Assessment and Plan: * seems quite severe by exam * likely worsened by the need for vasopressor therapy (8) Elevated LFTs: Code(s): R79.89 - Other specified abnormal findings of blood chemistry Status: Acute Assessment and Plan: * consistent with shock liver * follow trend of LFTs Will continue to follow. Subjective Date/time seen: 11/30/20 17:05 Remains on ventilator support for respiratory failure and vasopressors for shock; antibiotics adjusted due to culture results today; no real significant change at this time; making reasonable urine output Exam Narrative: Exam Narrative: General: ill appearing male intubated Heart: normal S1 and S2; no rub Lungs: clear to auscultation Abdomen: soft, nontender, nondistended, positive bowel sounds Extremities: no cyanosis or clubbing; trace edema Skin: discolored and cyanotic (lower extremities) Objective Data Vital Signs Vital Signs: Vital Signs Temp Pulse Resp BP Pulse Ox 11/30/20 16:57 89 96 11/30/20 16:00 36.1 C L 91 24 H 111/69 95
--- NOTE | 2020-11-30 17:05 | PM.PNNEP ---
Progress Note: A&P Assessment and Plan (1) ANDREY (acute kidney injury): Code(s): N17.9 - Acute kidney failure, unspecified Status: Acute Assessment and Plan: improving likely due to ATN from: - hemodynamic instability/hypotension - sepsis (pneumonia + lower extremities) - mild rhabdomyolysis - pre-renal factors renal ultrasound ultrasound normal urine electrolytes with pre-renal azotemia follow repeat labs and UOP with current interventions (2) Hyponatremia: Code(s): E87.1 - Hypo-osmolality and hyponatremia Status: Acute Assessment and Plan: related to ANDREY/ARF, IV/IVPB meds with D5W carrier fluid, cardiomyopathy, and fluid retention difficult situation - would avoid 3% saline given fluid overload and cardiomyopathy consider diuresis but hemodynamics may not allow for that consider normal saline tube flushes - started on salt tabs pr change all medication carrier fluid to normal saline if possible (3) Septic shock: Code(s): A41.9 - Sepsis, unspecified organism; R65.21 - Severe sepsis with septic shock Status: Acute Assessment and Plan: consistent with admission parameters -- altered mental status, poor p.o. intake, hypotension, acute kidney injury, and lactic acidosis presumably related to pneumonia but lower extremities could be a source follow culture data continue antibiotics vasopressor support to maintain MAP continue supportive therapy (4) Acute respiratory failure: Code(s): J96.00 - Acute respiratory failure, unspecified whether with hypoxia or hypercapnia Status: Acute Assessment and Plan: due to a combination of pneumonia, sepsis, and pulmonary edema continue ventilator support at this time wean when more stable (5) Pneumonia: Code(s): J18.9 - Pneumonia, unspecified organism Status: Acute Assessment and Plan: follow cultures follow imaging on antibiotics (6) Rhabdomyolysis: Code(s): M62.82 - Rhabdomyolysis Status: Acute Assessment and Plan: CPK trending down IVFs as tolerated follow for now (7) Peripheral vascular disease: Code(s): I73.9 - Peripheral vascular disease, unspecified Status: Acute Assessment and Plan: seems quite severe by exam likely worsened by the need for vasopressor therapy (8) Elevated LFTs: Code(s): R79.89 - Other specified abnormal findings of blood chemistry Status: Acute Assessment and Plan: consistent with shock liver follow trend of LFTs Will continue to follow. Subjective Date/time seen: 11/30/20 17:05 Remains on ventilator support for respiratory failure and vasopressors for shock; antibiotics adjusted due to culture results today; no real significant change at this time; making reasonable urine output Exam Narrative: Exam Narrative: General: ill appearing male intubated Heart: normal S1 and S2; no rub Lungs: clear to auscultation Abdomen: soft, nontender, nondistended, positive bowel sounds Extremities: no cyanosis or clubbing; trace edema Skin: discolored and cyanotic (lower extremities) Objective Data Vital Signs Vital Signs: Vital Signs Temp Pulse Resp BP Pulse Ox 11/30/20 16:57 89 96 11/30/20 16:00 36.1 C L 91 24 H 111/69 95 11/30/20 14:00 93 24 H 95/77 L 95 11/30/20 13:51 123 H 97 11/30/20 13:50 94 24 H 11/30/20 12:07 93 110/71 11/30/20 12:00 95 11/30/20 11:55 95 95 11/30/20 11:51 95 11/30/20 11:50 37.5 C 96 27 H 114/74 92 11/30/20 10:42 93 96 11/30/20 10:41 96 24 H 11/30/20 10:00 38.1 C H 98 24 H 109/70 91 11/30/20 08:00 38.3 C H 103 H 29 H 109/67 95 11/30/20 06:24 103 H 110/68 11/30/20 06:00 38.4 C H 104 H 24 H 113/73 94 11/30/20 05:36 105 H 117/69 11/30/20 04:34 105 H 95 11/30/20 04:01
[2020-11-30 17:38] LABS: Glucose Point of Care 165 (65-105)
[2020-11-30] MEDS: NOREPINEPHRINE 8 MG/D5W 250 ML 8 MG/250 ML BAG 15 MG IV CONT (17:39)
[2020-11-30] MEDS: ENOXAPARIN 80 MG/0.8 ML SYRINGE 70 MG SUB-Q (20:25)
[2020-11-30 23:52] LABS: Glucose Point of Care 171 (65-105)
[2020-12-01] VITALS (62 sets, daily range): BP systolic 81–111; BP diastolic 50–69; PULSE 79–98; RESP 0–26; TEMP 35.4–37.1; O2SAT 90–99
[2020-12-01] MEDS: ALBUTEROL SULFATE NEB 2.5 MG/0.5 ML INH INHALATION ×2 (02:14→07:31)
[2020-12-01] MEDS: IPRATROPIUM BR 0.02% INH SOLN 0.5 MG/2.5 ML VIAL INHALATION ×4 (02:14→21:42)
[2020-12-01 03:53] LABS: Hemoglobin 9.4 g/dL (14.0-18.0); Mean Corpuscular HGB Conc 36.2 g/dl (32-36); Mean Corpuscular Hemoglobin 29.6 pg (26-34); Mean Corpuscular Volume 81.8 fl (80-100); Platelet Count Result 150 k/mm3 (150-375); Red Blood Count 3.18 M/mm3 (4.6-6.20); Red Cell Distribution Width 18.6 % (11.5-14.5); White Blood Count 17.3 K/mm3 (4.5-10.0)
[2020-12-01] MEDS: DOBUTamine 250 MG/D5W 250 ML 250 MG/250 ML BAG 20.73 MG IV CONT ×2 (03:57→16:58)
[2020-12-01 04:20] LABS: Alanine Aminotransferase 394 U/L (4-50); Albumin Level 2.8 g/dL (3.5-5.1); Alkaline Phosphatase 130 U/L (38-126); Anion Gap 6 mmol/L (8-16); Aspartate Amino Transferase 178 U/L (17-59); Bilirubin,Total 4.9 mg/dL (0.2-1.3); Blood Urea Nitrogen 66 mg/dL (9-20); Calcium 8.2 mg/dL (8.4-10.2); Carbon Dioxide 29 mmol/L (22-30); Chloride 85 mmol/L (98-107); Creatine Kinase 743 U/L (55-170); Estimated CRCL calculation 46 ml/min; Estimated Glomerular Filt Rate 48; Glucose 130 mg/dL (75-110); Magnesium 1.6 mg/dL (1.6-2.3); Phosphorus 4.3 mg/dL (2.5-4.5); Potassium 3.4 mmol/L (3.4-5.0); Sodium 120 mmol/L (137-145)
[2020-12-01 06:11] LABS: Alveolar/Arterial O2 Gradient 140.4 mmHg; Base Excess ABG 0.5 mEq/l (+/-2.0); Carboxyhemoglobin 0.6 % THb (0-2.0); Fractional Inspired Oxygen 35 %; HCO3 ABG 24.1 mEq/l (22.0-26.0); Methemoglobin ABG 0.1 %THb (0-1.5); Oxygen Content ABG 15.7 %vol (16.0-22.0); Oxygen Saturation ABG 94.7 % (95.0-100.0); Oxyhemoglobin 91.8 % THb (90.0-100.0); PO2 ABG 68.5 mmHg (80.0-100.0); PO2 FiO2 Ratio Arterial Blood 1.96 %; Reduced Hemoglobin 7.5 %THb (0-5.0); Total Hemoglobin 12.1 g/dL (12.0-18.0); pH ABG 7.455 (7.350-7.450)
[2020-12-01 06:12] LABS: Arterial Blood Gas PEEP 8 cmH2O; Arterial Blood Gas Tidal Volume 450 ml; Arterial Blood Gas Vent Mode CMV; Arterial Blood Gas Ventilator rate 24 /MIN; Device VENTILATOR; Modified Allen's Test Unable to perform; Site Drawn RIGHT RADIAL
[2020-12-01] MEDS: AMIODARONE 360 MG/D5W 200 ML 360 MG/200 ML BAG 16.67 MG IV CONT ×2 (06:13→17:01)
[2020-12-01] MEDS: CEFEPIME 2 GM in DEXTROSE 5% IN WATER 50 ML IVPB ×2 (06:15→18:05)
--- NOTE | 2020-12-01 08:15 | PM.PNCARD ---
Progress Note: A&P Assessment and Plan (1) Shock liver: Code(s): K72.00 - Acute and subacute hepatic failure without coma Status: Acute Assessment and Plan: Monitor. (2) Tobacco dependence: Code(s): F17.200 - Nicotine dependence, unspecified, uncomplicated Status: Acute (3) Peripheral vascular disease: Code(s): I73.9 - Peripheral vascular disease, unspecified Status: Acute (4) Acute respiratory failure: Code(s): J96.00 - Acute respiratory failure, unspecified whether with hypoxia or hypercapnia Status: Acute Assessment and Plan: On mechanical ventilation. Management as per maintenance welder. (5) Rhabdomyolysis: Code(s): M62.82 - Rhabdomyolysis Status: Acute (6) Elevated troponin: Code(s): R77.8 - Other specified abnormalities of plasma proteins Status: Acute Assessment and Plan: Moderately elevated. Probably due to septic shock. (7) Hyponatremia: Code(s): E87.1 - Hypo-osmolality and hyponatremia Status: Acute Assessment and Plan: Monitor. Avoid free water. (8) Pneumonia: Code(s): J18.9 - Pneumonia, unspecified organism Status: Acute Assessment and Plan: On antibiotics. Management per maintenance welder. (9) Acute renal failure (ARF): Qualifiers: Acute renal failure type: with acute tubular necrosis Qualified Code(s): N17.0 - Acute kidney failure with tubular necrosis Code(s): N17.9 - Acute kidney failure, unspecified Status: Acute Assessment and Plan: Nephrology following. (10) Atrial fibrillation with RVR: Code(s): I48.91 - Unspecified atrial fibrillation Status: Acute Assessment and Plan: Restored sinus rhythm with Amiodarone since 4 pm 11/29/20. Due to low BP and on vasopressors incuding Vasopressin and Levophed, cannot control rate with AV barron blocking agents such as beta griselda and calcium channel blockers. Not on anticoagulation because of high INR of 4.5 on 11/27/20. Was on heparin drip also. (11) Systolic heart failure: Code(s): I50.20 - Unspecified systolic (congestive) heart failure Status: Acute Assessment and Plan: Poor prognosis given multiorgan failure. Diurese as needed and if can maintain mean SBP >60 mmHg. On low dose dobutamine drip to improve cardiac output, however, may precipitate PAF. If and when vasopressors are able to be weaned off, and extubated then consider left heart cath to assess coronary anatomy. (12) Septic shock: Code(s): A41.9 - Sepsis, unspecified organism; R65.21 - Severe sepsis with septic shock Status: Acute Assessment and Plan: On antibiotics and vasopressors. Management per maintenance welder. Subjective Date/time seen: 12/01/20 08:15 Patient is sedated on mechanical ventilation. Exam Const: Other: Intubated on mechanical ventilation. Resp: Auscultation: no rhonchi, no wheezes and diminished lung sounds Other: Coarse breath sounds bilaterally Cardio: Rate: regular rate Rhythm: regular rhythm Heart sounds: no murmurs GI: GI Palp: Yes Soft to palpation Extrem: Right lower extremity: cyanosis and edema Left lower extremity: cyanosis and edema Other: Trace edema of both legs Objective Data Vital Signs Vital Signs: Vital Signs - 24 hr 11/30/20 10:00 11/30/20 10:41 11/30/20 10:42 Temperature 100.5 F H Pulse Rate 98 96 93 Respiratory Rate 24 H 24 H Blood Pressure 109/70 Pulse Oximetry 91 96 11/30/20 11:50 11/30/20 11:51 11/30/20 11:55 Temperature 99.5 F Pulse Rate 96 95 Respiratory Rate 27 H Blood Pressure 114/74 Pulse Oximetry 92 95 95 11/30/20 12:00 11/30/20 12:07 11/30/20 13:50 Temperature Pulse Rate 95 93 94 Respiratory Rate 24 H Blood Pressure 110/71 Pulse Oximetry 11/30/20 13:51 11/30/20 14:00 11/30/20 16:00 Temperature 97 F L Pulse Rate 123 H 93 91 Respiratory Rate 24 H 24 H Blood Pressur
[2020-12-01] MEDS: dexmedeTOMIDine 400 MCG/100 ML 400 MCG/100 ML BAG 7.46 MCG IV CONT (08:36)
[2020-12-01] MEDS: ENOXAPARIN 80 MG/0.8 ML SYRINGE 70 MG SUB-Q ×2 (08:41→19:50)
[2020-12-01] MEDS: PANTOPRAZOLE SODIUM IV 40 MG VIAL IV PUSH (08:42)
[2020-12-01 12:05] LABS: Glucose Point of Care 137 (65-105)
--- NOTE | 2020-12-01 12:43 | WPDINTPN ---
Progress Note: A&P Assessment and Plan (1) Acute respiratory failure: Code(s): J96.00 - Acute respiratory failure, unspecified whether with hypoxia or hypercapnia Status: Acute Assessment and Plan: Acute respiratory failure likely related to pneumonia, metabolic acidosis, septic shock, pulmonary edema -currently intubated, on CMV mode of ventilation, peep of 8 and 40% FiO2, ABGs and chest x-ray reviewed, wean FiO2 to maintain O2 sats greater than 92% - patient has a history of COPD, continue bronchodilators -continue cefepime vancomycin -sputum is growing Pseudomonas. We will continue cefepime but discontinue vancomycin. -we will add Levaquin 750 mg Q 48 hours until susceptibility pattern is back. (2) Septic shock: Code(s): A41.9 - Sepsis, unspecified organism; R65.21 - Severe sepsis with septic shock Status: Acute Assessment and Plan: Patient presented with altered mental status, decreased p.o. intake, hypotension, dehydration, acute kidney injury, elevated liver enzymes, lactic acidosis -septic shock likely related to pneumonia -continue antibiotics as above -urine and blood cultures have been obtained and negative ten now -patient was adequately fluid-resuscitated with approximately 5 L IV fluid and currently off of IV fluids -lactic acid has normalized -continue vasopressin and Levophed, maintain mean arterial pressures > 70 mmHg -continue hydrocortisone (3) Peripheral vascular disease: Code(s): I73.9 - Peripheral vascular disease, unspecified Status: Acute Assessment and Plan: Arterial occlusive disease to the Toes may have been exacerbated by vasopressor use which are currently being weaned off. Thromboembolic disease from Afib less likely given INR of 4.5 on admission and bilateral presentation. He may need toe amputations once more stable. Doubt he is an interventional candidate Continue heparin drip, PTT is therapeuatic (4) Acute renal failure (ARF): Qualifiers: Acute renal failure type: with acute tubular necrosis Qualified Code(s): N17.0 - Acute kidney failure with tubular necrosis Code(s): N17.9 - Acute kidney failure, unspecified Status: Acute Assessment and Plan: Acute renal failure likely multifactorial secondary to septic shock, infection, rhabdomyolysis, dehydration, decreased p.o. intake -patient has been adequately fluid-resuscitated, -creatinine and urine output has improved -CK level has decreased -off bicarb infusion -continue to monitor renal function, electrolytes and urine output -nephrology has been consulted -renal ultrasound was unremarkable (5) Rhabdomyolysis: Code(s): M62.82 - Rhabdomyolysis Status: Acute Assessment and Plan: Elevated CK related to rhabdomyolysis causing renal dysfunction -CK level improving -patient has been adequately fluid-resuscitated (6) Pneumonia: Code(s): J18.9 - Pneumonia, unspecified organism Status: Acute Assessment and Plan: Likely due to Psuedomonas. Chest x-ray shows pneumonia, Will discontinue Levaquin today and continue cefepime. -bronchodilators -currently intubated on mechanical ventilation (7) Elevated LFTs: Code(s): R79.89 - Other specified abnormal findings of blood chemistry Status: Acute Assessment and Plan: Elevated liver enzymes likely related to shock, secondary to hypotension, septic shock -continue to maintain pressures greater than 70 mmHg -monitor LFTs (8) Elevated troponin: Code(s): R77.8 - Other specified abnormalities of plasma proteins Status: Acute Assessment and Plan: Elevated troponin likely related to demand ischemia -will continue to monitor (9) Hyponatremia: Code(s): E87.1 - Hypo-osmolality and hyponatremia Status: Acute Assessment and Plan: Hyponatremia but it is worsened now. Patient hypervolemic at this time Will add salt tablets and monitor sodium (
--- NOTE | 2020-12-01 13:00 | P.PNNP_ITS ---
Progress Note: A&P Assessment and Plan (1) ANDREY (acute kidney injury): Code(s): N17.9 - Acute kidney failure, unspecified Status: Acute Assessment and Plan: * improving if not stable -- however, urine output is declining * likely due to ATN from: - hemodynamic instability/hypotension - sepsis (pneumonia + lower extremities) - mild rhabdomyolysis (although CPK improving now) - pre-renal factors * renal ultrasound normal * urine electrolytes with pre-renal azotemia * follow repeat labs and UOP with current interventions (2) Hyponatremia: Code(s): E87.1 - Hypo-osmolality and hyponatremia Status: Acute Assessment and Plan: * related to ANDREY/ARF, IV/IVPB meds with D5W carrier fluid, cardiomyopathy, and fluid retention * difficult situation - would avoid 3% saline given fluid overload and cardiomyopathy * consider diuresis but hemodynamics may not allow for that * consider normal saline tube flushes - started on salt tabs by intensivists * change all medication carrier fluid to normal saline if possible (3) Septic shock: Code(s): A41.9 - Sepsis, unspecified organism; R65.21 - Severe sepsis with septic shock Status: Acute Assessment and Plan: * consistent with admission parameters -- altered mental status, poor p.o. intake, hypotension, acute kidney injury, and lactic acidosis * presumably related to pneumonia but lower extremities could be a source * follow culture data * continue antibiotics * vasopressor support to maintain MAP * continue supportive therapy (4) Cardiomyopathy: Code(s): I42.9 - Cardiomyopathy, unspecified Status: Acute Assessment and Plan: * quite severe as noted by Echo -- EF < 15% * on dobutamine gtt * Cardiology following (5) Acute respiratory failure: Code(s): J96.00 - Acute respiratory failure, unspecified whether with hypoxia or hypercapnia Status: Acute Assessment and Plan: * due to a combination of pneumonia, sepsis, and pulmonary edema * continue ventilator support at this time * wean when more stable (6) Pneumonia: Code(s): J18.9 - Pneumonia, unspecified organism Status: Acute Assessment and Plan: * follow cultures * follow imaging * on antibiotics (7) Rhabdomyolysis: Code(s): M62.82 - Rhabdomyolysis Status: Acute Assessment and Plan: * CPK trending down * follow for now (8) Peripheral vascular disease: Code(s): I73.9 - Peripheral vascular disease, unspecified Status: Acute Assessment and Plan: * seems quite severe by exam * likely worsened by the need for vasopressor therapy * dobtamine gtt may be helping to some degree (9) Elevated LFTs: Code(s): R79.89 - Other specified abnormal findings of blood chemistry Status: Acute Assessment and Plan: * consistent with shock liver * follow trend of LFTs Will continue to follow. Subjective Date/time seen: 12/01/20 13:00 Started on low dose dobutamine gtt yesterday due to Echo findings and the hope to improve blood flow/circulation in general given his evident severe peripheral vascular disease -- this appears to have helped to some degree although he is still requiring levophed to maintain his MAP; however, his urine output has declined to some degree. Exam Narrative: Exam Narrative: General: ill appearing male intubated Heart: normal S1 and S2; no r
--- NOTE | 2020-12-01 13:00 | PM.PNNEP ---
Progress Note: A&P Assessment and Plan (1) ANDREY (acute kidney injury): Code(s): N17.9 - Acute kidney failure, unspecified Status: Acute Assessment and Plan: improving if not stable -- however, urine output is declining likely due to ATN from: - hemodynamic instability/hypotension - sepsis (pneumonia + lower extremities) - mild rhabdomyolysis (although CPK improving now) - pre-renal factors renal ultrasound normal urine electrolytes with pre-renal azotemia follow repeat labs and UOP with current interventions (2) Hyponatremia: Code(s): E87.1 - Hypo-osmolality and hyponatremia Status: Acute Assessment and Plan: related to ANDREY/ARF, IV/IVPB meds with D5W carrier fluid, cardiomyopathy, and fluid retention difficult situation - would avoid 3% saline given fluid overload and cardiomyopathy consider diuresis but hemodynamics may not allow for that consider normal saline tube flushes - started on salt tabs by intensivists change all medication carrier fluid to normal saline if possible (3) Septic shock: Code(s): A41.9 - Sepsis, unspecified organism; R65.21 - Severe sepsis with septic shock Status: Acute Assessment and Plan: consistent with admission parameters -- altered mental status, poor p.o. intake, hypotension, acute kidney injury, and lactic acidosis presumably related to pneumonia but lower extremities could be a source follow culture data continue antibiotics vasopressor support to maintain MAP continue supportive therapy (4) Cardiomyopathy: Code(s): I42.9 - Cardiomyopathy, unspecified Status: Acute Assessment and Plan: quite severe as noted by Echo -- EF < 15% on dobutamine gtt Cardiology following (5) Acute respiratory failure: Code(s): J96.00 - Acute respiratory failure, unspecified whether with hypoxia or hypercapnia Status: Acute Assessment and Plan: due to a combination of pneumonia, sepsis, and pulmonary edema continue ventilator support at this time wean when more stable (6) Pneumonia: Code(s): J18.9 - Pneumonia, unspecified organism Status: Acute Assessment and Plan: follow cultures follow imaging on antibiotics (7) Rhabdomyolysis: Code(s): M62.82 - Rhabdomyolysis Status: Acute Assessment and Plan: CPK trending down follow for now (8) Peripheral vascular disease: Code(s): I73.9 - Peripheral vascular disease, unspecified Status: Acute Assessment and Plan: seems quite severe by exam likely worsened by the need for vasopressor therapy dobtamine gtt may be helping to some degree (9) Elevated LFTs: Code(s): R79.89 - Other specified abnormal findings of blood chemistry Status: Acute Assessment and Plan: consistent with shock liver follow trend of LFTs Will continue to follow. Subjective Date/time seen: 12/01/20 13:00 Started on low dose dobutamine gtt yesterday due to Echo findings and the hope to improve blood flow/circulation in general given his evident severe peripheral vascular disease -- this appears to have helped to some degree although he is still requiring levophed to maintain his MAP; however, his urine output has declined to some degree. Exam Narrative: Exam Narrative: General: ill appearing male intubated Heart: normal S1 and S2; no rub Lungs: clear to auscultation Abdomen: soft, nontender, nondistended, positive bowel sounds Extremities: no cyanosis or clubbing; trace edema Skin: discolored and cyanotic appearing lower extremities Objective Data Vital Signs Vital Signs: Vital Signs Temp Pulse Resp BP Pulse Ox 12/01/20 12:00 36.9 C 96 22 H 94/54 L 91 12/01/20 11:57 96 88/54 L 12/01/20 10:19 97 95 12/01/20 10:00 37.1 C 97 15 111/69 95 12/01/20 09:09 82 24 H 11/03
[2020-12-01] MEDS: FUROSEMIDE INJ 40 MG/4 ML VIAL 20 MG IV PUSH (15:03)
[2020-12-01 16:38] LABS: Chloride Rand Ur 34 mmol/L (32-290); Chloride/Creatinine Rand Ur 37 (23-275); Creatinine Random Urine 93 mg/dL (20-320)
[2020-12-01] MEDS: NOREPINEPHRINE 8 MG/D5W 250 ML 8 MG/250 ML BAG 9.38 MG IV CONT (16:52)
[2020-12-01] MEDS: dexmedeTOMIDine 400 MCG/100 ML 400 MCG/100 ML BAG 9.33 MCG IV CONT (17:06)
--- NOTE | 2020-12-01 17:27 | PM.IMPN ---
Progress Note: A&P Assessment and Plan (1) Septic shock: Code(s): A41.9 - Sepsis, unspecified organism; R65.21 - Severe sepsis with septic shock Status: Acute Assessment and Plan: Blood cultures no growth but continues on vancomycin and cefepime D#6 . Still requiring pressors to maintain mean arterial pressure (2) Acute metabolic encephalopathy: Code(s): G93.41 - Metabolic encephalopathy Status: Acute Assessment and Plan: Secondary to the sepsis shock, pneumonia, (3) Hypoglycemia: Code(s): E16.2 - Hypoglycemia, unspecified Status: Acute Assessment and Plan: Initially low but has responded and continue to monitor (4) Acute hyponatremia: Code(s): E87.1 - Hypo-osmolality and hyponatremia Status: Acute Assessment and Plan: Sodium continues to run low in the 120s. Nephrology following (5) Acute renal failure (ARF): Qualifiers: Acute renal failure type: with acute tubular necrosis Qualified Code(s): N17.0 - Acute kidney failure with tubular necrosis Code(s): N17.9 - Acute kidney failure, unspecified Status: Acute Assessment and Plan: Creatinine peaked at 3 now down to 1.5. No obstruction on ultrasound, probably secondary to sepsis and hypotension (6) Bilateral pneumonia: Code(s): J18.9 - Pneumonia, unspecified organism Status: Acute Assessment and Plan: Continue antibiotics. As per state tested nursing assistant sputum culture could be colonization but continue coverage for Pseudomonas Day 6. IV antibiotics (7) Liver failure: Code(s): K72.90 - Hepatic failure, unspecified without coma Status: Acute Assessment and Plan: LFT sepsis fallen slowly will continue to monitor, hep profile negative, suspect all shock liver (8) Elevated troponin: Code(s): R77.8 - Other specified abnormalities of plasma proteins Status: Acute Assessment and Plan: Flattened thought secondary hypoxia with no true acute coronary syndrome (9) Rhabdomyolysis: Code(s): M62.82 - Rhabdomyolysis Status: Acute Assessment and Plan: CK down to 743 from 4400. Continue to monitor (10) Acute respiratory failure: Code(s): J96.00 - Acute respiratory failure, unspecified whether with hypoxia or hypercapnia Status: Acute Assessment and Plan: Continue vent support, secondary to pneumonia (11) Tobacco dependence: Code(s): F17.200 - Nicotine dependence, unspecified, uncomplicated Status: Acute Assessment and Plan: Cessation is of utmost importance (12) Crohn's disease: Code(s): K50.90 - Crohn's disease, unspecified, without complications Status: Acute Assessment and Plan: No acute changes (13) Chronic obstructive pulmonary disease: Code(s): J44.9 - Chronic obstructive pulmonary disease, unspecified Status: Acute Assessment and Plan: Continue inhalers and vent (14) Peripheral vascular disease: Code(s): I73.9 - Peripheral vascular disease, unspecified Status: Acute Assessment and Plan: now heparin with ischemic changes of feet (15) Systolic heart failure: Code(s): I50.20 - Unspecified systolic (congestive) heart failure Status: Acute Assessment and Plan: EF less than 15% possible secondary to septic shock. Now on dobutamine with pressor and some increased organ perfusion falling LFTs and creatinine Prognosis still very poor Subjective Date/time seen: 12/01/20 17:27 Interval history: Date of visit 12/01 59-year-old with chronic respiratory failure COPD and Crohn's disease admitted with sepsis with hypotension and acute renal failure. Chest x-ray infiltrates and sputum growing Pseudomonas. Continues on antibiotics with vancomycin and cefepime. Continues on pressors Exam Narrative: Exam Narrative: Blood pressure 100/58 on Levophed pulse is 90 respirations 24 per minut
[2020-12-01 18:23] LABS: Glucose Point of Care 137 (65-105)
[2020-12-01 23:57] LABS: Glucose Point of Care 122 (65-105)
[2020-12-02] VITALS (21 sets, daily range): BP systolic 74–104; BP diastolic 48–63; PULSE 62–94; RESP 22–26; TEMP 36.1–36.7; O2SAT 90–97
[2020-12-02] MEDS: IPRATROPIUM BR 0.02% INH SOLN 0.5 MG/2.5 ML VIAL INHALATION ×2 (02:26→08:17)
[2020-12-02] MEDS: dexmedeTOMIDine 400 MCG/100 ML 400 MCG/100 ML BAG 9.33 MCG IV CONT (02:28)
[2020-12-02] MEDS: AMIODARONE 360 MG/D5W 200 ML 360 MG/200 ML BAG 16.67 MG IV CONT (04:17)
[2020-12-02] MEDS: DOBUTamine 250 MG/D5W 250 ML 250 MG/250 ML BAG 20.73 MG IV CONT (04:42)
[2020-12-02 06:16] LABS: Alveolar/Arterial O2 Gradient 145.3 mmHg; Base Excess ABG 1.5 mEq/l (+/-2.0); Carboxyhemoglobin 0.4 % THb (0-2.0); Fractional Inspired Oxygen 35 %; HCO3 ABG 25.2 mEq/l (22.0-26.0); Methemoglobin ABG 0.4 %THb (0-1.5); Oxygen Content ABG 10.9 %vol (16.0-22.0); Oxygen Saturation ABG 93.3 % (95.0-100.0); Oxyhemoglobin 90.6 % THb (90.0-100.0); PO2 ABG 62.4 mmHg (80.0-100.0); PO2 FiO2 Ratio Arterial Blood 1.78 %; Reduced Hemoglobin 8.6 %THb (0-5.0); Total Hemoglobin 8.5 g/dL (12.0-18.0); pH ABG 7.463 (7.350-7.450)
[2020-12-02 06:18] LABS: Device VENTILATOR; Modified Allen's Test Unable to perform; Site Drawn RIGHT RADIAL
[2020-12-02] MEDS: CEFEPIME 2 GM in DEXTROSE 5% IN WATER 50 ML IVPB (06:18)
[2020-12-02 06:19] LABS: Arterial Blood Gas PEEP 5 cmH2O; Arterial Blood Gas Tidal Volume 400 ml; Arterial Blood Gas Vent Mode CMV; Arterial Blood Gas Ventilator rate 22 /MIN
[2020-12-02 06:39] LABS: Hemoglobin 7.6 g/dL (14.0-18.0); Immature Platelet Fraction Pct 10.6 % (0.9-11.2); Mean Corpuscular HGB Conc 36.7 g/dl (32-36); Mean Corpuscular Hemoglobin 29.3 pg (26-34); Mean Corpuscular Volume 79.9 fl (80-100); Mean Platelet Volume 12.7 fl (7.4-10.4); Platelet Count Result 149 k/mm3 (150-375); Red Blood Count 2.59 M/mm3 (4.6-6.20); Red Cell Distribution Width 18.8 % (11.5-14.5); White Blood Count 12.7 K/mm3 (4.5-10.0)
[2020-12-02 06:44] LABS: Hematocrit 20.7 % (42.0-52.0)
[2020-12-02 06:49] LABS: Alanine Aminotransferase 264 U/L (4-50); Albumin Level 2.3 g/dL (3.5-5.1); Alkaline Phosphatase 135 U/L (38-126); Anion Gap 7 mmol/L (8-16); Aspartate Amino Transferase 114 U/L (17-59); Bilirubin,Total 4.8 mg/dL (0.2-1.3); Blood Urea Nitrogen 79 mg/dL (9-20); Calcium 7.8 mg/dL (8.4-10.2); Carbon Dioxide 28 mmol/L (22-30); Chloride 86 mmol/L (98-107); Creatine Kinase 321 U/L (55-170); Estimated CRCL calculation 42 ml/min; Estimated Glomerular Filt Rate 39; Glucose 97 mg/dL (75-110); Magnesium 1.5 mg/dL (1.6-2.3); Phosphorus 4.2 mg/dL (2.5-4.5); Potassium 3.3 mmol/L (3.4-5.0); Sodium 121 mmol/L (137-145)
--- NOTE | 2020-12-02 07:18 | ECG_ITS ---
Measurements Intervals [place] Rate: 89 P: 40 SC: 112 QRS: -31 QRSD: 104 T: 29 QT: 403 QTc: 491 Interpretive Statements SINUS RHYTHM WITH SHORT SC INTERVAL VENTRICULAR PREMATURE COMPLEX POSSIBLE LEFT ATRIAL ENLARGEMENT LEFT AXIS DEVIATION INCOMPLETE RIGHT BUNDLE BRANCH BLOCK BORDERLINE T WAVE ABNORMALITY- ANT/INF LEADS BORDERLINE ECG Electronically Signed On 12-02-2020 9:36:20 STEAM POWERPLANT SUPERVISOR by Camacho Palafox D.O.
--- NOTE | 2020-12-02 08:08 | PM.PNCARD ---
Progress Note: A&P Assessment and Plan (1) Shock liver: Code(s): K72.00 - Acute and subacute hepatic failure without coma Status: Acute Assessment and Plan: Monitor. (2) Tobacco dependence: Code(s): F17.200 - Nicotine dependence, unspecified, uncomplicated Status: Acute (3) Peripheral vascular disease: Code(s): I73.9 - Peripheral vascular disease, unspecified Status: Acute (4) Acute respiratory failure: Code(s): J96.00 - Acute respiratory failure, unspecified whether with hypoxia or hypercapnia Status: Acute Assessment and Plan: On mechanical ventilation. Management as per real estate specialist. (5) Rhabdomyolysis: Code(s): M62.82 - Rhabdomyolysis Status: Acute (6) Elevated troponin: Code(s): R77.8 - Other specified abnormalities of plasma proteins Status: Acute Assessment and Plan: Moderately elevated. Probably due to septic shock. (7) Hyponatremia: Code(s): E87.1 - Hypo-osmolality and hyponatremia Status: Acute Assessment and Plan: Monitor. Avoid free water. (8) Pneumonia: Code(s): J18.9 - Pneumonia, unspecified organism Status: Acute Assessment and Plan: On antibiotics. Management per real estate specialist. (9) Acute renal failure (ARF): Qualifiers: Acute renal failure type: with acute tubular necrosis Qualified Code(s): N17.0 - Acute kidney failure with tubular necrosis Code(s): N17.9 - Acute kidney failure, unspecified Status: Acute Assessment and Plan: Nephrology following. (10) Atrial fibrillation with RVR: Code(s): I48.91 - Unspecified atrial fibrillation Status: Acute Assessment and Plan: Restored sinus rhythm with Amiodarone since 4 pm 11/29/20. Due to low BP and on vasopressors incuding Dobutamine and Levophed, cannot control rate with AV barron blocking agents such as beta griselda and calcium channel blockers. Not on anticoagulation because of high INR of 4.5 on 11/27/20. On Lovenox. (11) Systolic heart failure: Code(s): I50.20 - Unspecified systolic (congestive) heart failure Status: Acute Assessment and Plan: Poor prognosis given multiorgan failure. Diurese as needed and if can maintain mean SBP >60 mmHg. On low dose dobutamine drip to improve cardiac output, however, may precipitate PAF. If and when vasopressors are able to be weaned off, and extubated then consider left heart cath to assess coronary anatomy. (12) Septic shock: Code(s): A41.9 - Sepsis, unspecified organism; R65.21 - Severe sepsis with septic shock Status: Acute Assessment and Plan: On antibiotics and vasopressors. Management per real estate specialist. Subjective Date/time seen: 12/02/20 08:08 Patient is on mechanical ventilation. Exam Const: Other: Intubated on mechanical ventilation. Resp: Auscultation: no rhonchi, no wheezes and diminished lung sounds Other: Coarse breath sounds bilaterally Cardio: Rate: regular rate Rhythm: regular rhythm Heart sounds: no murmurs GI: GI Palp: Yes Soft to palpation Extrem: Right lower extremity: cyanosis and edema Left lower extremity: cyanosis and edema Other: Trace edema of both legs Objective Data Vital Signs Vital Signs: Vital Signs - 24 hr 12/01/20 08:36 12/01/20 08:43 12/01/20 08:44 Temperature Pulse Rate 98 92 94 Respiratory Rate 24 H Blood Pressure 101/57 L 101/57 L Pulse Oximetry 12/01/20 08:45 12/01/20 09:09 12/01/20 10:00 Temperature 98.8 F Pulse Rate 94 82 97 Respiratory Rate 24 H 15 Blood Pressure 99/56 L 111/69 Pulse Oximetry 95 12/01/20 10:19 12/01/20 11:57 12/01/20 12:00 Temperature 98.5 F Pulse Rate 97 96 96 Respiratory Rate 22 H Blood Pressure 88/54 L 94/54 L Pulse Oximetry 95 91 12/01/20 13:46 12/01/20 13:47 12/01/20 13:48 Temperature Pulse Rate 97 97 97 Respiratory Rate 22 H Blood Pressure 94/54 L Pulse O
[2020-12-02] MEDS: MIDAZOLAM HCL (*CRX) 2 MG/2 ML VIAL IV PUSH (09:17)
[2020-12-02] MEDS: PANTOPRAZOLE SODIUM IV 40 MG VIAL IV PUSH (09:18)
[2020-12-02] MEDS: MAGNESIUM SULF 2 GM/WATER 50ML 2 GM/50 ML BAG IVPB (09:23)
[2020-12-02] MEDS: dexmedeTOMIDine 400 MCG/100 ML 400 MCG/100 ML BAG 13.06 MCG IV CONT (10:30)
[2020-12-02] MEDS: ENOXAPARIN 80 MG/0.8 ML SYRINGE 70 MG SUB-Q (10:32)
--- NOTE | 2020-12-02 11:48 | PCDIET ---
ICU Rounding Note: Tube feedings held 11/29/20 for residual up to 615mL. Restarted over the weekend at 20mL/hr; now on hold for emesis. LFTs elevated. +Jaundice. Shrimp Peeling Machine Operator to speak with GI. Last recorded weight is 76.4kg which has increased from last review. Bowel Motility: No documented BM - discussed during rounds. Recommend considering obstructive series. Labs Reviewed: Hgb (7.6), Hct (20.7), BUN (79), Cr (1.8), K (3.3), Na (121), Alb (2.3), Amy Ca (9.16) Meds Noted: Albuterol, Atrovent, Cefepime, Levophed, Precedex, Protonix, Dobutamine, KCl, Magnesium Sulfate Additional Notes: No documented pressure sores. Following daily in ICU rounds. Assessing/reassessing every Wednesday/Wednesday.
--- NOTE | 2020-12-02 13:56 | WPDINTPN ---
Progress Note: A&P Assessment and Plan (1) Acute respiratory failure: Code(s): J96.00 - Acute respiratory failure, unspecified whether with hypoxia or hypercapnia Status: Acute Assessment and Plan: Acute respiratory failure likely related to pneumonia, metabolic acidosis, septic shock, pulmonary edema -currently intubated, on CMV mode of ventilation, peep of 8 and 40% FiO2, ABGs and chest x-ray reviewed, wean FiO2 to maintain O2 sats greater than 92% - patient has a history of COPD, continue bronchodilators -sputum is growing Pseudomonas. Continue cefepime, vancomycin and levofloxacin was discontinued 12/01/2020 (2) Septic shock: Code(s): A41.9 - Sepsis, unspecified organism; R65.21 - Severe sepsis with septic shock Status: Acute Assessment and Plan: Patient presented with altered mental status, decreased p.o. intake, hypotension, dehydration, acute kidney injury, elevated liver enzymes, lactic acidosis -septic shock likely related to pneumonia -continue antibiotics as above -urine and blood cultures have been obtained and negative till now -patient was adequately fluid-resuscitated with approximately 5 L IV fluid and currently off of IV fluids -lactic acid has normalized -continue Levophed, maintain mean arterial pressures > 70 mmHg. Patient is off vasopressin (3) Peripheral vascular disease: Code(s): I73.9 - Peripheral vascular disease, unspecified Status: Acute Assessment and Plan: Arterial occlusive disease to the Toes may have been exacerbated by vasopressor use which are currently being weaned off. Thromboembolic disease from Afib less likely given INR of 4.5 on admission and bilateral presentation. He may need toe amputations once more stable. Doubt he is an interventional candidate Continue heparin drip, PTT is therapeuatic (4) Acute renal failure (ARF): Qualifiers: Acute renal failure type: with acute tubular necrosis Qualified Code(s): N17.0 - Acute kidney failure with tubular necrosis Code(s): N17.9 - Acute kidney failure, unspecified Status: Acute Assessment and Plan: Acute renal failure likely multifactorial secondary to septic shock, infection, rhabdomyolysis, dehydration, decreased p.o. intake -patient has been adequately fluid-resuscitated, -creatinine and urine output has improved -CK level has decreased -off bicarb infusion -continue to monitor renal function, electrolytes and urine output -nephrology has been consulted -renal ultrasound was unremarkable (5) Rhabdomyolysis: Code(s): M62.82 - Rhabdomyolysis Status: Acute Assessment and Plan: Elevated CK related to rhabdomyolysis causing renal dysfunction -CK level improving -patient has been adequately fluid-resuscitated (6) Pneumonia: Code(s): J18.9 - Pneumonia, unspecified organism Status: Acute Assessment and Plan: Likely due to Psuedomonas. Chest x-ray shows pneumonia, continue cefepime -bronchodilators -currently intubated on mechanical ventilation (7) Elevated LFTs: Code(s): R79.89 - Other specified abnormal findings of blood chemistry Status: Acute Assessment and Plan: Elevated liver enzymes likely related to shock, secondary to hypotension, septic shock -continue to maintain pressures greater than 70 mmHg -monitor LFTs (8) Elevated troponin: Code(s): R77.8 - Other specified abnormalities of plasma proteins Status: Acute Assessment and Plan: Elevated troponin likely related to demand ischemia -will continue to monitor (9) Hyponatremia: Code(s): E87.1 - Hypo-osmolality and hyponatremia Status: Acute Assessment and Plan: Hyponatremia but it is worsened now. Patient hypervolemic at this time Continue salt tablets and monitor sodium (10) Cardiogenic shock: Code(s): R57.0 - Cardiogenic shock Status: Acute Assessment and Plan: Continue dobutamin
[2020-12-02] MEDS: MORPHINE SULFATE INJ (*CRX) 10 MG/ML AMP 5 MG IV PUSH (14:42)
[2020-12-02] MEDS: LORazepam INJ (*CRX) 2 MG/ML VIAL IV PUSH (14:43)
[2020-12-02] MEDS: MORPHINE SULFATE (*CRX) 2 MG/ML INJ IV PUSH (16:27)
--- NOTE | 2020-12-02 17:48 | PC.NURSE ---
Patient at 1705, patient mother notified of time of .
--- NOTE | 2020-12-02 18:10 | PM.DDS ---
Discharge Sum: Prov Provider Primary care physician: Paulina Hernandez, Admitting provider: Darryl Welch MD Consults: 11/26/20 Consult to Physician Routine Comment: Consulting Provider: Lee Ruiz Reason for consultation: abdominal pain, abnormla ct Has provider been notified: Yes Consult to Physician Routine Comment: Consulting Provider: Manoj Tobias Reason for consultation: abnormal lft Has provider been notified: Yes 11/27/20 09:46 Consult to Physician Routine Comment: SPOKE WITH DR. BLANCO Consulting Provider: Vera Blanco call or contact centre coach/MD group to consult: Nephrology Reason for consultation: Acute kidney injury, rhabdomyolysis, septic shock Has provider been notified: Yes 11/29/20 Consult to Physician Routine Comment: Consulting Provider: Camacho Palafox call or contact centre coach/MD group to consult: Cardiology Reason for consultation: CHF Has provider been notified: Yes 11/30/20 Consult to Physician Routine Comment: Consulting Provider: Emanuel Wiseman call or contact centre coach/MD group to consult: ICU Reason for consultation: ventilator management and pressors Has provider been notified: Yes Pronouncing clinician: Ki Baldwin Discharge Sum: Diag PCOD septic shock Contributing Factors (1) Septic shock: (2) Acute metabolic encephalopathy: (3) Hypoglycemia: (4) Acute hyponatremia: (5) Acute renal failure (ARF): (6) Bilateral pneumonia: (7) Liver failure: (8) Elevated troponin: (9) Rhabdomyolysis: (10) Acute respiratory failure: (11) Tobacco dependence: (12) Crohn's disease: (13) Chronic obstructive pulmonary disease: (14) Peripheral vascular disease: (15) Systolic heart failure: Discharge Sum: Summary Date and Time Date of admission: 11/26/20 19:06 Date of : 12/02/20 Time of : 17:15 Summary Details: 60-year-old male with COPD presents with altered mental status. On presentation he had impending respiratory failure and increasing confusion and thus was intubated. He had septic shock presumably from pneumonia. He was on broad-spectrum IV antibiotics. There is also concerned the patient had cardiogenic shock component. His EF was 15% and severe pulmonary hypertension. Cardiology was involved in his care. Other issues include acute kidney injury probably with ATN, rhabdomyolysis, elevated troponins and elevated liver enzymes all felt related to shock. Patient remained in critical condition. Patient developed hematemesis as well. Family visited the patient and decided to make him comfort measures. Support was withdrawn and patient peacefully on the evening of December 02. Additional Data Family: at bedside and contacted Attending physician: Esteban Baldwin MD Was code activated?: No Advance directives: Yes Hospice patient?: No
== END 2020-12-02 17:05 | disposition expired | DRG 720 ==
LOC: ANHED 16:47 → ANHICU 19:30
PROVIDERS: Emergency Medicine; Internal Medicine; Physician Assistant; Admitting Provider Internal Medicine; Emergency Provider Emergency Medicine; PCP Family Medicine; Visit Provider Internal Medicine
DX: A41.9 Sepsis, unspecified organism (principal); R65.21 Severe sepsis with septic shock; J18.9 Pneumonia, unspecified organism; J96.00 Acute respiratory failure, unspecified whether with hypoxia or hypercapnia; G93.41 Metabolic encephalopathy; E87.1 Hypo-osmolality and hyponatremia; E87.5 Hyperkalemia; N17.0 Acute kidney failure with tubular necrosis; Z20.822 Contact with and (suspected) exposure to COVID-19; K72.90 Hepatic failure, unspecified without coma; M62.82 Rhabdomyolysis; E16.2 Hypoglycemia, unspecified; K50.90 Crohn's disease, unspecified, without complications; I73.9 Peripheral vascular disease, unspecified; E86.0 Dehydration; I44.7 Left bundle-branch block, unspecified; K21.9 Gastro-esophageal reflux disease without esophagitis; M19.90 Unspecified osteoarthritis, unspecified site; R91.8 Other nonspecific abnormal finding of lung field; F17.210 Nicotine dependence, cigarettes, uncomplicated; I24.8 Other forms of acute ischemic heart disease; J43.9 Emphysema, unspecified; R79.1 Abnormal coagulation profile; I50.41 Acute combined systolic (congestive) and diastolic (congestive) heart failure; I48.91 Unspecified atrial fibrillation; R57.0 Cardiogenic shock
CPT/HCPCS: 36415; 36556; 36600; 51701; 70450; 71045; 74176; 76775; 80048; 80053; 80074; 80076; 80202; 80307; 81001; 82140; 82375; 82436; 82533; 82550; 82570; 82728; 82805; 82948; 83036; 83050; 83605; 83615; 83735; 83880; 84100; 84300; 84443; 84484; 85025; 85027; 85049; 85055; 85380; 85384; 85610; 85730; 85999; 86140; 87040; 87070; 87077; 87086; 87088; 87186; 87205; 93005; 93306; 93922; 93970; 94002; 94003; 94640; 96361; 96365; 96367; 96375; 99291; A9270; C1751; C9113; C9803; J0282; J0456; J0610; J0692; J0696; J1250; J1644; J1650; J1720; J1815; J1940; J1956; J2060; J2250; J2270; J2543; J3010; J3370; J3475; J3480; J7030; J7042; J7070; J7120; J7121; P9047; U0003; U0005